=== PATIENT | female | born 1960 | race Caucasian/White ===

== ENCOUNTER 2017-07-09 22:35 | Emergency (ER) | payer MEDICAID ==
[2017-07-09] MEDS ORDERED: KETOROLAC 15 MG/1 ML SDV IM ONE (23:18)
[2017-07-09] MEDS ORDERED: SUMAtriptan 6 MG/0.5 ML VIAL SC ONE (23:18)
[2017-07-09] MEDS ORDERED: IPRATROPIUM/ALBUTEROL 3 ML DEYVIAL IH ONE (23:18)
--- NOTE | 2017-07-09 23:41 | EDPHY ---
H & P Stated Complaint: HEADACHE COUGH AND LOW BACK PAIN, HOMELESS Time Seen by Provider: 07/09/17 23:01 HPI/ROS: HPI The patient presents with multiple complaints, most prominent is headache which she says she has daily and is described as a headache that begins in her frontal region bilaterally and radiates throughout her head. She takes Advil for this, her last dose was yesterday. This usually helps the headache, however she feels it is slightly worse tonight. He came on slowly. She has a history of meningitis remotely and believes this is the cause of her headaches. She is also complaining of lower back pain which she has frequently which is achy in nature. She does not have any paresthesias or weakness per her report. She also reports a mild cough. She usually takes Advair and albuterol for this and has a history of half pack per day smoking. She is newly homeless, previous living in [place] and relocated to [place]. She apparently lost her place at the snf tonight.. REVIEW OF SYSTEMS Constitutional: No fever, no chills. Eyes: No discharge. ENT: No sore throat. Cardiovascular: No chest pain, no palpitations. Respiratory: No cough, no shortness of breath. Gastrointestinal: No abdominal pain, no vomiting. Genitourinary: No hematuria. Musculoskeletal: Positive for back pain. Skin: No rashes. Neurological: Positive for headache. PMHx: Likely COPD, history of meningitis with neurosurgical intervention of some sort Soc Hx: Newly homeless, frequent smoker PHYSICAL General Appearance: Alert, no distress Eyes: Pupils equal and round no pallor or injection ENT, Mouth: Mucous membranes moist Respiratory: There are no retractions, lungs are clear to auscultation Cardiovascular: Regular rate and rhythm Gastrointestinal: Abdomen is soft and non-tender, no masses, bowel sounds normal Neurological: A&O, moves all extremities, strength is full Back: There is lumbar tenderness in the midline in the paraspinal region Skin: Warm and dry, no rashes Musculoskeletal: Neck is supple non tender Extremities: symmetrical, full range of motion Psychiatric: Patient is oriented X 3, there is no agitation Source: Patient Exam Limitations: No limitations - Personal History Current Tetanus/Diphtheria Vaccine: Yes Current Tetanus Diphtheria and Acellular Pertussis (TDAP): Yes - Medical/Surgical History Hx Asthma: No Hx Chronic Respiratory Disease: Yes Hx Diabetes: No Hx Cardiac Disease: No Hx Renal Disease: No Hx Cirrhosis: No Hx Alcoholism: No Hx HIV/AIDS: No Hx Splenectomy or Spleen Trauma: No Other PMH: COPD, BREAST SURGERY, TUBAL HIST, KNEE L, MENINGITIS X3 - Social History Smoking Status: Heavy smoker Constitutional: Initial Vital Signs Temperature (C) 36.6 C 07/09/17 22:37 Heart Rate 107 H 07/09/17 22:37 Respiratory Rate 18 07/09/17 22:37 Blood Pressure 140/80 H 07/09/17 22:37 O2 Sat (%) 84 L 07/09/17 22:37 O2 Delivery Mode Room Air Allergies/Adverse Reactions: penicillin G Allergy (Verified 07/09/17 22:43) Home Medications: Medication Instructions Recorded Albuterol Sulfate [Proair 90 mcg IH 07/09/17 Resp[place]lick] Aspirin [Aspirin 81mg (*)] 81 mg PO DAILY 07/09/17 Fluticasone/Salmeter 250/50Mcg 1 puffs IH BID 07/09/17 [Advair 250/50 (*)] Multivitamin [One Daily Essential] 1 each PO 07/09/17 [place]-3 Fatty Acids/Fish Oil [Fish 1 each PO 07/09/17 Oil 1,000 mg Capsule] Medical Decision Making - Diagnostics Imaging Results: Chest x-ray two view shows no infiltrate, no cardiomegaly, no effusion, interpreted by me, radiology interpretation is pending. Imaging: I viewed and interpreted images myself Differential Diagnosis: 56-year-old female, newly homeless, history of likely COPD and meningitis with chronic headaches presents with headache, lower back pain, cough. On exam, she is notably hypoxic but is breathing comfortably and lungs sound clear to me. She has no neurologic deficits on gross exam. Differential diagnosis includes migraine type headache, tension type headache, less likely meningitis given no nuchal rigidity or photophobia or fever. Back pain is likely musculoskeletal, there are no red flag features. Her cough is likely related to her underlying COPD and lungs sound clear. I will treat her headache symptomatically and try a DuoNeb to see if this improves her oxygen saturation. The patient's headache improved while in the emergency department. She did receive a DuoNeb. She initially did complain of a cough, however does not have any shortness of breath. Because she is somewhat hypoxic, chest x-ray was ordered and this is unremarkable for any acute pathology. I feel it her hypoxia as related to COPD. She has a primary care doctor and I have asked that she follow up for a recheck in the next few days. She has Advair and albuterol prescriptions already. - Data Points Medications Given: Discontinued Medications Albuterol/Ipratropium (Duoneb) 3 ml IH EDNOW ONE Stop: 07/09/17 23:19 Last Admin: 07/09/17 23:37 Dose: 3 ml Ketorolac Tromethamine (Toradol) 15 mg IM EDNOW ONE Stop: 07/09/17 23:19 Last Admin: 07/09/17 23:38 Dose: 15 mg Sumatriptan Succinate (Imitrex Sc Injection) 6 mg SC EDNOW ONE Stop: 07/09/17 23:19 Last Admin: 07/09/17 23:39 Dose: Not Given Departure - Departure Disposition: Home, Routine, Self-Care Clinical Impression: Hypoxia Headache Qualifiers: Headache type: unspecified Headache chronicity pattern: acute headache Intractability: not intractable Qualified Code(s): R51 - Headache Condition: Good Instructions: Migraine Headache (ED) Additional Instructions: Please return to the emergency department if your worse in any way. Referrals: YESSI HAYWARD [Primary Care Provider] - As per Instructions
[2017-07-10 01:47] VITALS: BP 105/72; PULSE 80; RESP 18; TEMP 98.2; O2SAT 90
--- NOTE | 2017-07-10 10:13 | ASMTCMCOM ---
CM Note CM Note Notes: Chart reviewed for patient who was in the ER last night. Patient needs follow up for results of chest x-ray. Dr. Tiff Kingsley of [facility] confirmed as patient's PCP. ED report, chest x-ray , and recommended follow up faxed to [facility] , attention: Dr. Kingsley Date Signed: 07/10/2017 10:12 AM Electronically Signed By:Sol Egan RN
== END 2017-07-10 01:46 | disposition home or self-care (01) ==
DX: R51 Headache (principal); R09.02 Hypoxemia; F17.200 Nicotine dependence, unspecified, uncomplicated; Z79.82 Long term (current) use of aspirin
CPT/HCPCS: J1885; J3030

== ENCOUNTER 2017-08-07 07:18 | Emergency (ER) | payer MEDICAID ==
[2017-08-07 07:23] VITALS: RESP 18
[2017-08-07] MEDS ORDERED: NS 1,000 ML IV ONE (08:07)
[2017-08-07] MEDS ORDERED: methylPREDNISolone SOD SUCC 125 MG/2 ML VIAL IVP ONE (08:07)
[2017-08-07] MEDS ORDERED: IPRATROPIUM/ALBUTEROL 3 ML DEYVIAL IH ONE ×2 (08:07→10:56)
[2017-08-07] MEDS ORDERED: ACETAMINOPHEN 500 MG TAB PO ONE (08:08)
--- NOTE | 2017-08-07 08:10 | EDPHY ---
H & P Stated Complaint: Cough, headache, body aches for 1 week. Time Seen by Provider: 08/07/17 08:00 HPI/ROS: CHIEF COMPLAINT: Cough, COPD, headache HISTORY OF PRESENT ILLNESS: The patient is a 57-year-old homeless female with a history of COPD who comes to the emergency department complaining of a cough, and mild headache. She states that these are both baseline. She does smoke. She was seen here 1 month ago for the same symptoms and they improved with a DuoNeb and had a chest x-ray which revealed no pneumonia but a 8 mm right middle lobe nodule. CT imaging follow-up was recommended. The patient tells me that she was unaware of this. She has been afebrile. She denies any trauma. She was hypoxic on room air on triage but is not in the room. REVIEW OF SYSTEMS: Constitutional: denies: chills, fever, recent illness, recent injury EENTM: denies: blurred vision, double vision, nose congestion Respiratory: See HPI Cardiac: denies: chest pain, irregular heart rate, lightheadedness, palpitations Gastrointestinal/Abdominal: denies: abdominal pain, diarrhea, nausea, vomiting, blood streaked stools Genitourinary: denies: dysuria, frequency, hematuria, pain Musculoskeletal: denies: joint pain, muscle pain Skin: denies: lesions, rash, jaundice, bruising Neurological: See HPI denies: numbness, paresthesia, tingling, dizziness, weakness Hematologic/Lymphatic: denies: blood clots, easy bleeding, easy bruising Immunologic/allergic: denies: HIV/AIDS, transplant EXAM: GENERAL: Well-appearing, well-nourished and in no acute distress. HEAD: Atraumatic, normocephalic. EYES: Pupils equal round and reactive to light, extraocular movements intact, sclera anicteric, conjunctiva are normal. ENT: TMs normal, nares patent, oropharynx clear without exudates. Moist mucous membranes. NECK: Normal range of motion, supple without lymphadenopathy or JVD. LUNGS: Breath sounds clear to auscultation bilaterally and equal. No wheezes rales or rhonchi. HEART: Regular rate and rhythm without murmurs, rubs or gallops. ABDOMEN: Soft, nontender, normoactive bowel sounds. No guarding, no rebound. No masses appreciated. BACK: No CVA tenderness, no spinal tenderness, step-offs or deformities EXTREMITIES: Normal range of motion, no pitting or edema. No clubbing or cyanosis. NEUROLOGICAL: Cranial nerves II through XII grossly intact. Normal speech, normal gait. 5/5 strength, normal movement in all extremities, normal sensation PSYCH: Normal mood, normal affect. SKIN: Warm, dry, normal turgor, no visible rashes or lesions. Source: Patient Exam Limitations: No limitations - Personal History Current Tetanus Diphtheria and Acellular Pertussis (TDAP): Unsure - Medical/Surgical History Hx Asthma: No Hx Chronic Respiratory Disease: Yes Hx Diabetes: No Hx Cardiac Disease: No Hx Renal Disease: No Hx Cirrhosis: No Hx Alcoholism: No Hx HIV/AIDS: No Hx Splenectomy or Spleen Trauma: No Other PMH: COPD, BREAST SURGERY, TUBAL HIST, KNEE L, MENINGITIS X3 - Family History Significant Family History: No pertinent family hx - Social History Smoking Status: Heavy smoker Alcohol Use: Heavy Drug Use: Marijuana Constitutional: Initial Vital Signs Temperature (C) 36.6 C 08/07/17 07:18 Heart Rate 99 08/07/17 07:18 Respiratory Rate 18 08/07/17 07:18 Blood Pressure 118/76 08/07/17 07:18 O2 Sat (%) 84 L 08/07/17 07:18 O2 Delivery Mode Room Air Allergies/Adverse Reactions: penicillin G Allergy (Verified 07/09/17 22:43) Home Medications: Medication Instructions Recorded Albuterol Sulfate [Proair 90 mcg IH 07/09/17 Respiclick] Aspirin [Aspirin 81mg (*)] 81 mg PO DAILY 07/09/17 Fluticasone/Salmeter 250/50Mcg 1 puffs IH BID 07/09/17 [Advair 250/50 (*)] Multivitamin [One Daily Essential] 1 each PO 07/09/17 [place]-3 Fatty Acids/Fish Oil [Fish 1 each PO 07/09/17 Oil 1,000 mg Capsule] Albuterol [Proventil Inhaler] 1 - 2 puffs IH Q4H #1 mdi 08/07/17 predniSONE 60 mg PO DAILY #15 tab 08/07/17 Medical Decision Making - Diagnostics Imaging Results: Imaging Impressions Chest/Thorax CTA 08/07/17 08:07 Impression: 1. No evidence of pulmonary embolus using CT protocol. 2. No underlying consolidation or pneumonia. 3. Probably benign bilateral small pulmonary nodules as detailed above. Consider follow-up noncontrast CT the chest in one year to confirm stability and benign features. Findings discussed with Andrew Woods M.D. at 10:40 hour, 08/07/2017. Imaging: Discussed imaging studies w/ house calls nurse Radiologist ED Course/Re-evaluation: 10:00 a.m. the patient is feeling much better. Headache is resolved after Tylenol. Hypoxia resolved with a DuoNeb. 10:[address] a.[address]. we discussed the CT results. We discussed 1 year follow-up. Patient is currently asymptomatic and eager to go home. She is slightly hypoxic at 88% on room air. I will give her another DuoNeb. She states that she does not feel short of breath at all. This may be her baseline. She does state that she ran out of her albuterol inhaler but takes Advair daily. I will give her short course of prednisone and refill of her albuterol. Differential Diagnosis: Partial list of the Differential diagnosis considered include but were not limited to; COPD exacerbation, migraine, tension headache and although unlikely based on the history and physical exam, I also considered pneumonia, PE , cancer, acute coronary disease, dissection. I discussed these differential diagnoses and the plan with the patient as well as the usual and expected course. The patient understands that the diagnosis is provisional and that in medicine we are not always correct and that further workup is often warranted. Usual and customary warnings were given. All of the patient's questions were answered. The patient was instructed to return to the emergency department should the symptoms at all worsen or return, otherwise to followup with the physician as we discussed. - Data Points Laboratory Results: Laboratory Results 08/07/17 08:20 08/07/17 08:20 08/07/17 08/07/17 08/07/17 08:20 08:20 08:20 WBC 7.80 10^3/uL 10^3/uL (3.80-9.50) RBC 4.59 10^6/uL 10^6/uL (4.18-5.33) Hgb 14.4 g/dL g/dL (12.6-16.3) Hct 41.6 % % (38.0-47.0) MCV 90.6 fL fL (81.5-99.8) MCH 31.4 pg pg (27.9-34.1) MCHC 34.6 g/dL g/dL (32.4-36.7) RDW 13.8 % % (11.5-15.2) Plt Count 233 10^3/uL 10^3/uL (150-400) MPV 9.9 fL fL (8.7-11.7) Neut % (Auto) 75.8 % H % (39.3-74.2) Lymph % (Auto) 11.7 % L % (15.0-45.0) [place] % (Auto) 11.4 % % (4.5-13.0) Eos % (Auto) 0.3 % L % (0.6-7.6) Baso % (Auto) 0.5 % % (0.3-1.7) Nucleat RBC Rel Count 0.0 % % (0.0-0.2) Absolute Neuts (auto) 5.92 10^3/uL 10^3/uL (1.70-6.50) Absolute Lymphs (auto) 0.91 10^3/uL L 10^3/uL (1.00-3.00) Absolute Monos (auto) 0.89 10^3/uL H 10^3/uL (0.30-0.80) Absolute Eos (auto) 0.02 10^3/uL L 10^3/uL (0.03-0.40) Absolute Basos (auto) 0.04 10^3/uL 10^3/uL (0.02-0.10) Absolute Nucleated RBC 0.00 10^3/uL 10^3/uL (0-0.01) Immature Gran % 0.3 % % (0.0-1.1) Immature Gran # 0.02 10^3/uL 10^3/uL (0.00-0.10) APTT 36.2 SEC SEC (23.0-38.0) Sodium 143 mEq/L mEq/L (134-144) Potassium 4.1 mEq/L mEq/L (3.5-5.2) Chloride 105 mEq/L mEq/L (97-110) Carbon Dioxide 28 mEq/l mEq/l (22-31) Anion Gap 10 mEq/L mEq/L (8-16) BUN 6 mg/dL L mg/dL (7-23) Creatinine 0.6 mg/dL mg/dL (0.6-1.0) Estimated GFR > 60 Glucose 88 mg/dL mg/dL (70-100) Calcium 8.7 mg/dL mg/dL (8.5-10.4) Medications Given: Discontinued Medications Acetaminophen (Tylenol) 1,000 mg PO EDNOW ONE Stop: 08/07/17 08:09 Last Admin: 08/07/17 08:21 Dose: 1,000 mg Albuterol Sulfate (Proventil Inh [place]) 1 mdi TAKEHOME EDNOW ONE Stop: 08/07/17 10:58 Last Admin: 08/07/17 11:09 Dose: 1 mdi Albuterol/Ipratropium (Duoneb) 3 ml IH EDNOW ONE Stop: 08/07/17 08:08 Last Admin: 08/07/17 08:21 Dose: 3 ml Albuterol/Ipratropium (Duoneb) 3 ml IH EDNOW ONE Stop: 08/07/17 10:57 Last Admin: 08/07/17 11:09 Dose: 3 ml Sodium Chloride (Ns) 1,000 mls @ 0 mls/hr IV ONCE ONE; Wide Open PRN Reason: Protocol Stop: 08/07/17 08:08 Last Admin: 08/07/17 08:20 Dose: 1,000 mls Methylprednisolone Sodium Succinate (Solu-Medrol) 125 mg IVP EDNOW ONE Stop: 08/07/17 08:08 Last Admin: 08/07/17 08:21 Dose: 125 mg Departure - Departure Disposition: Home, Routine, Self-Care Clinical Impression: COPD exacerbation Headache Qualifiers: Headache type: unspecified Headache chronicity pattern: acute headache Intractability: not intractable Qualified Code(s): R51 - Headache Condition: Fair Instructions: Albuterol (By breathing), COPD (Chronic Obstructive Pulmonary Disease) (DC), Acute Headache (ED) Additional Instructions: He have small nodules on each side of your lungs. We recommend to get a follow- up noncontrast CT scan of your chest in 1 year. Referrals: [facility] [Other] - As per Instructions Prescriptions: Albuterol [Proventil Inhaler] 1 - 2 puffs IH Q4H #1 mdi predniSONE 60 mg PO DAILY #15 tab
[2017-08-07] MEDS ORDERED: IOPAMIDOL (ISOVUE 370) 100 ML BTL IV ONE (08:19)
[2017-08-07 08:34] LABS: % IMMATURE GRANULYOCYTES 0.3 % (0.0-1.1); ABSOLUTE IMMATURE GRANULOCYTES 0.02 10^3/uL (0.00-0.10); ADD DIFF? NO; ADD MORPH? NO; ADD SCAN? NO; ATYPICAL LYMPHOCYTE FLAG 20 (0-99); FRAGMENT RBC FLAG 0 (0-99); HEMATOCRIT 41.6 % (38.0-47.0); HEMOGLOBIN 14.4 g/dL (12.6-16.3); LEFT SHIFT FLG 0 (0-99); LIPEMIA HEMOLYSIS FLAG 90 (0-99); MEAN CELL HEMOGLOBIN 31.4 pg (27.9-34.1); MEAN CELL HEMOGLOBIN CONCENTR. 34.6 g/dL (32.4-36.7); MEAN CELL VOLUME 90.6 fL (81.5-99.8); MEAN PLATELET VOLUME 9.9 fL (8.7-11.7); PLATELET CLUMPS FLAG 0 (0-99); PLATELET COUNT 233 10^3/uL (150-400); RED BLOOD CELL COUNT 4.59 10^6/uL (4.18-5.33); RED CELL DISTRIBUTION WIDTH 13.8 % (11.5-15.2)
[2017-08-07 08:47] LABS: ANION GAP 10 mEq/L (8-16); CALCIUM 8.7 mg/dL (8.5-10.4); CARBON DIOXIDE 28 mEq/l (22-31); CHLORIDE 105 mEq/L (97-110); CREATININE 0.6 mg/dL (0.6-1.0); GLOMERULAR FILTRATION RATE > 60; GLUCOSE 88 mg/dL (70-100); POTASSIUM 4.1 mEq/L (3.5-5.2); SODIUM 143 mEq/L (134-144)
[2017-08-07 10:06] VITALS: TEMP 98.6; O2SAT 93
[2017-08-07] MEDS ORDERED: ALBUTEROL INH PREPACK MDI TAKEHOME ONE (10:57)
[2017-08-07 11:33] VITALS: BP 107/81; PULSE 90
== END 2017-08-07 11:32 | disposition home or self-care (01) ==
DX: J44.1 Chronic obstructive pulmonary disease with (acute) exacerbation (principal); R51 Headache; F17.200 Nicotine dependence, unspecified, uncomplicated; E86.9 Volume depletion, unspecified; Z79.82 Long term (current) use of aspirin
CPT/HCPCS: 96374; J2930; Q9967

== ENCOUNTER 2017-08-08 06:43 | Inpatient (IN) | payer MEDICAID ==
--- NOTE | 2017-08-08 07:01 | EDPHY ---
HPI/HX/ROS/PE/MDM Narrative: CHIEF COMPLAINT: Shortness of breath, cough HPI: This patient is a 57 y/o homeless female with history of COPD complaining of cough and substernal chest pain onset last night. She was evaluated in this emergency department yesterday for cough and headache. CT imaging at that time showed no pneumonia, but was positive for a right middle lobe nodule, also present on x-ray one month ago. She was discharged in good condition with prednisone and albuterol. Today, she complains of continued dry cough as well as sore throat and otalgia. She has been afebrile. She did receive her flu vaccine this year. REVIEW OF SYSTEMS: Aside from elements discussed in the HPI, a comprehensive 10-point review of systems was reviewed and is negative. PMH: COPD, Breast surgery, Tubal ligation, Meningitis, Orthopedic surgery (knee) SOCIAL HISTORY: Homeless, lives in [place], single. PHYSICAL EXAM: General:Patient is alert, in no acute distress. ENT:Eyes are normal to inspection. ENT inspection normal. Neck: Normal inspection. Full range of motion. Respiratory:No respiratory distress. Breath sounds normal bilaterally. Cardiovascular: Regular rate and rhythm. Strong peripheral pulses. Normal cap refill. Abdomen:The abdomen is nontender to palpation. There are no peritoneal signs. There are normal bowel sounds. Back: Normal to inspection. No tenderness to palpation. Skin: Normal color. No rash. Warm and dry. Extremities: Normal appearance. Full range of motion. Neuro: Oriented x3. Normal motor function. Normal sensory function. ED Course: 57 y/o female presents with cough and substernal chest pain. Plan for repeat chest x-ray, labs including CBC, chemistries, liver, lipase, troponin, flu swab. Flu swab negative. Laboratory studies largely unremarkable, Troponin negative. 08:50 Plan for EKG to further evaluation the patient's chest pain. EKG was ordered and interpreted by myself. Please see [facility] system for official reading. Sinus rhythm, rate 86. Borderline right axis deviation. X-ray shows evidence of pulmonary nodules as noted on prior scans. No evidence of pneumonia or other acute processes. CT study yesterday read by Dr. Davis, radiologist, was negative for pulmonary embolism. 09:45 Patient's SpO2 dropped to 79% on room air. Plan to administer DuoNeb. 10:10 Patient's SpO2 improved to 82% on room air following DuoNeb treatment. Plan to admit. 10:[address] Spoke with hospitalist service. Dr. Becerra accepts admission for shortness of breath, hypoxemia. MDM: This patient presents with likely COPD exacerbation complicated by hypoxia. I see no evidence of ACS, PNA, severe sepsis, CHF or PE. - Data Points Imaging Results: Imaging Impressions Chest X-Ray 08/08/17 06:59 Impression: 1. Query COPD/chronic bronchitis. 2. Pulmonary nodules, recently detailed on CT with follow-up recommended Imaging: I viewed and interpreted images myself Laboratory Results: Laboratory Results 08/08/17 06:45 08/08/17 06:45 08/08/17 08/08/17 08/08/17 08:01 07:55 06:45 WBC RBC Hgb Hct MCV MCH MCHC RDW Plt Count MPV Neut % (Auto) Lymph % (Auto) [place] % (Auto) Eos % (Auto) Baso % (Auto) Nucleat RBC Rel Count Absolute Neuts (auto) Absolute Lymphs (auto) Absolute Monos (auto) Absolute Eos (auto) Absolute Basos (auto) Absolute Nucleated RBC Immature Gran % Immature Gran # Sodium 147 mEq/L H mEq/L (134-144) Potassium 3.9 mEq/L mEq/L (3.5-5.2) Chloride 105 mEq/L mEq/L (97-110) Carbon Dioxide 27 mEq/l mEq/l (22-31) Anion Gap 15 mEq/L mEq/L (8-16) BUN 8 mg/dL mg/dL (7-23) Creatinine 0.6 mg/dL mg/dL (0.6-1.0) Estimated GFR > 60 Glucose 90 mg/dL mg/dL (70-100) Calcium 9.6 mg/dL mg/dL (8.5-10.4) Total Bilirubin 0.4 mg/dL mg/dL (0.1-1.4) Conjugated Bilirubin 0.2 mg/dL mg/dL (0.0-0.5) Unconjugated Bilirubin 0.2 mg/dL mg/dL (0.0-1.1) AST 33 IU/L IU/L (14-46) ALT 39 IU/L IU/L (9-52) Alkaline Phosphatase 148 IU/L H IU/L (38-126) Troponin I < 0.012 ng/mL ng/mL (0.000-0.034) Total Protein 6.7 g/dL g/dL (6.3-8.2) Albumin 4.0 g/dL g/dL (3.5-5.0) Lipase 69 IU/L IU/L (23-300) Nasal Influenza A PCR NEGATIVE FOR FLU A (NEGATIVE) Nasal Influenza B PCR NEGATIVE FOR FLU B (NEGATIVE) 08/08/17 06:45 WBC 11.56 10^3/uL H 10^3/uL (3.80-9.50) RBC 4.91 10^6/uL 10^6/uL (4.18-5.33) Hgb 15.4 g/dL g/dL (12.6-16.3) Hct 44.4 % % (38.0-47.0) MCV 90.4 fL fL (81.5-99.8) MCH 31.4 pg pg (27.9-34.1) MCHC 34.7 g/dL g/dL (32.4-36.7) RDW 14.0 % % (11.5-15.2) Plt Count 258 10^3/uL 10^3/uL (150-400) MPV 10.0 fL fL (8.7-11.7) Neut % (Auto) 74.6 % H % (39.3-74.2) Lymph % (Auto) 14.0 % L % (15.0-45.0) [place] % (Auto) 10.8 % % (4.5-13.0) Eos % (Auto) 0.0 % L % (0.6-7.6) Baso % (Auto) 0.3 % % (0.3-1.7) Nucleat RBC Rel Count 0.0 % % (0.0-0.2) Absolute Neuts (auto) 8.63 10^3/uL H 10^3/uL (1.70-6.50) Absolute Lymphs (auto) 1.62 10^3/uL 10^3/uL (1.00-3.00) Absolute Monos (auto) 1.25 10^3/uL H 10^3/uL (0.30-0.80) Absolute Eos (auto) 0.00 10^3/uL L 10^3/uL (0.03-0.40) Absolute Basos (auto) 0.03 10^3/uL 10^3/uL (0.02-0.10) Absolute Nucleated RBC 0.00 10^3/uL 10^3/uL (0-0.01) Immature Gran % 0.3 % % (0.0-1.1) Immature Gran # 0.03 10^3/uL 10^3/uL (0.00-0.10) Sodium Potassium Chloride Carbon Dioxide Anion Gap BUN Creatinine Estimated GFR Glucose Calcium Total Bilirubin Conjugated Bilirubin Unconjugated Bilirubin AST ALT Alkaline Phosphatase Troponin I Total Protein Albumin Lipase Nasal Influenza A PCR Nasal Influenza B PCR Medications Given: Discontinued Medications Albuterol/Ipratropium (Duoneb) 3 ml IH EDNOW ONE Stop: 08/08/17 09:48 Last Admin: 08/08/17 09:52 Dose: 3 ml General Initial Vital Signs: Initial Vital Signs Temperature (C) 36.4 C 08/08/17 06:51 Heart Rate 109 H 08/08/17 06:51 Respiratory Rate 20 08/08/17 06:51 Blood Pressure 141/78 H 08/08/17 06:51 O2 Sat (%) 91 L 08/08/17 06:51 O2 Delivery Mode Nasal Cannula O2 (L/minute) 2 Allergies/Adverse Reactions: penicillin G Allergy (Verified 08/08/17 06:53) Home Medications: Medication Instructions Recorded Aspirin [Aspirin 81mg (*)] 81 mg PO DAILY 07/09/17 Fluticasone/Salmeter 250/50Mcg 1 puffs IH BID 07/09/17 [Advair 250/50 (*)] Albuterol [Proventil Inhaler HFA 1 - 2 puffs IH Q4-6PRN PRN 08/08/17 (*)] Calcium Carbonate [[place] 500 mg PO DAILY 08/08/17 Calcium 500 mg (*)] Multivitamins [Multivitamin (*)] 1 each PO DAILY 08/08/17 [place]-3 Fatty Acids [Fish Oil 1000 1,000 mg PO DAILY 08/08/17 mg (*)] Departure - Departure Disposition: [facility] In[facility] Acute Clinical Impression: Hypoxemia Chest pain Qualifiers: Chest pain type: other chest pain Qualified Code(s): R07.89 - Other chest pain Condition: Fair Report Scribed for: Rudy Montgomery Report Scribed by: Inna Nichols Date of Report: 08/08/17 Time of Report: 07:00 Physician Review and Approval Statement: Portions of this note were transcribed by an ED scribe. I personally performed the history, physical exam, and medical decision making; and confirm the accuracy of the information in the transcribed note.
[2017-08-08 07:07] LABS: % IMMATURE GRANULYOCYTES 0.3 % (0.0-1.1); ABSOLUTE IMMATURE GRANULOCYTES 0.03 10^3/uL (0.00-0.10); ADD DIFF? NO; ADD MORPH? NO; ADD SCAN? NO; ATYPICAL LYMPHOCYTE FLAG 20 (0-99); FRAGMENT RBC FLAG 0 (0-99); HEMATOCRIT 44.4 % (38.0-47.0); HEMOGLOBIN 15.4 g/dL (12.6-16.3); LEFT SHIFT FLG 0 (0-99); LIPEMIA HEMOLYSIS FLAG 90 (0-99); MEAN CELL HEMOGLOBIN 31.4 pg (27.9-34.1); MEAN CELL HEMOGLOBIN CONCENTR. 34.7 g/dL (32.4-36.7); MEAN CELL VOLUME 90.4 fL (81.5-99.8); PLATELET CLUMPS FLAG 0 (0-99); PLATELET COUNT 258 10^3/uL (150-400); RED BLOOD CELL COUNT 4.91 10^6/uL (4.18-5.33)
[2017-08-08 07:14] LABS: ANION GAP 15 mEq/L (8-16); CALCIUM 9.6 mg/dL (8.5-10.4); CARBON DIOXIDE 27 mEq/l (22-31); CHLORIDE 105 mEq/L (97-110); CREATININE 0.6 mg/dL (0.6-1.0); GLOMERULAR FILTRATION RATE > 60; GLUCOSE 90 mg/dL (70-100); POTASSIUM 3.9 mEq/L (3.5-5.2); SODIUM 147 mEq/L (134-144)
[2017-08-08 07:26] LABS: TROPONIN I < 0.012 ng/mL (0.000-0.034)
[2017-08-08 08:07] LABS: BILIRUBIN,TOTAL 0.4 mg/dL (0.1-1.4); BILIRUBIN-CONJUGATED 0.2 mg/dL (0.0-0.5); BILIRUBIN-UNCONJUGATED 0.2 mg/dL (0.0-1.1); TOTAL PROTEIN 6.7 g/dL (6.3-8.2)
--- NOTE | 2017-08-08 09:02 | CPEKG ---
Heart Rate: 86 RR Interval: 698 P-R Interval: 160 QRSD Interval: 80 QT Interval: 368 QTC Interval: 440 P [place]: 79 QRS [place]: 93 T Wave [place]: 64 EKG Severity - OTHERWISE NORMAL ECG - EKG Impression: SINUS RHYTHM EKG Impression: BORDERLINE RIGHT AXIS DEVIATION Electronically Signed By: Dorothy Robles 10-Aug-2017 14:07:01
[2017-08-08] MEDS ORDERED: IPRATROPIUM/ALBUTEROL 3 ML DEYVIAL IH ONE (09:47)
[2017-08-08] MEDS ORDERED: IPRATROPIUM/ALBUTEROL 3 ML DEYVIAL ONE (09:48)
[2017-08-08] MEDS ORDERED: ONDANSETRON DISINTEGRATING 4 MG TAB PO PRN (10:53)
[2017-08-08] MEDS ORDERED: ALBUTEROL 60 PUFFS/8 GM MDI IH PRN (10:53)
[2017-08-08] MEDS ORDERED: ACETAMINOPHEN 325 MG TAB PO PRN (10:53)
[2017-08-08] MEDS ORDERED: IBUPROFEN 200 MG TAB PO PRN ×2 (10:53→16:17)
[2017-08-08] MEDS ORDERED: ONDANSETRON 4 MG/2 ML VIAL IVP PRN (10:53)
[2017-08-08] MEDS ORDERED: ALBUTEROL 200 PUFFS/18 GM MDI IH PRN (12:29)
[2017-08-08] MEDS: IPRATROPIUM/ALBUTEROL 3 ML DEYVIAL IH SCH ×3 (15:47→20:27)
--- NOTE | 2017-08-08 16:22 | PDGENHP ---
History and Physical - Chief Complaint Acute chest pain - History of Present Illness Primary care provider: [facility] HPI: 57-year-old female presents with acute chest pain characterized as a burning sensation located substernally with associated nonproductive cough, shortness of breath, headache, with symptom onset on the day of this presentation and duration persistent thereafter. She reports that the chest pain occurred in the context of 2 days of this nonproductive cough, and the chest pain seems to be somewhat exacerbated by the cough as well as palpating her sternum. She reports that her shortness of breath has been somewhat alleviated by supplemental oxygen in the emergency department. The patient has been experiencing the constellation of headache, sore throat for approximately 1 week and she attempts to manage the symptoms with ibuprofen. History Information - Allergies/Home Medication List Allergies/Adverse Reactions: penicillin G Allergy (Verified 08/08/17 06:53) Home Medications: Aspirin [Aspirin 81mg (*)] 81 mg PO DAILY 07/09/17 [Last Taken 08/07/17] Fluticasone/Salmeter 250/50Mcg [Advair 250/50 (*)] 1 puffs IH BID 07/09/17 [ Last Taken 08/08/17] Albuterol [Proventil Inhaler HFA (*)] 1 - 2 puffs IH Q4-6PRN PRN 08/08/17 [Last Taken 08/08/17] Calcium Carbonate [Oyster Shell Calcium 500 mg (*)] 500 mg PO DAILY 08/08/17 [ Last Taken 08/07/17] Multivitamins [Multivitamin (*)] 1 each PO DAILY 08/08/17 [Last Taken 08/07/17] [place]-3 Fatty Acids [Fish Oil 1000 mg (*)] 1,000 mg PO DAILY 08/08/17 [Last Taken 08/07/17] I have personally reviewed and updated: family history, medical history, social history, surgical history - Past Medical History COPD (With Advair and rescue inhaler) Additional medical history: Traumatic brain injury - Surgical History Additional surgical history: Breast tissue excision. EMILEE BSO. Knee surgery. Facial nasal reconstruction, craniotomy status post trauma - Family History Additional family history: Sibling with myocardial infarction around age 50, father with CAD and CHF in his 80s, no respiratory issues - Social History Smoking Status: Heavy smoker Alcohol Use: None Drug Use: None Additional social history: Homeless, recently moved from [place] to [place] Review of Systems Review of Systems: ROS: 10pt was reviewed & negative except for what was stated in HPI & below EENMT: Reports: sore throat Cardiac: Reports: chest pain Respiratory: Reports: cough, shortness of breath Neurological: Reports: headache Physical Exam Physical Exam: Temp Pulse Resp BP Pulse Ox 36.8 C 103 H 18 120/74 93 08/08/17 16:10 08/08/17 16:10 08/08/17 16:10 08/08/17 16:10 08/08/17 16:10 O2 (L/minute) 4 Constitutional: no apparent distress, appears nourished, not in pain Eyes: PERRL, anicteric sclera, EOMI Ears, Nose, Mouth, Throat: moist mucous membranes, hearing normal, ears appear normal, no oral mucosal ulcers Cardiovascular: regular rate and rhythym, no murmur, rub, or gallop, No edema Respiratory: reduced air movement (On expiration bilaterally), No expiratory wheeze, No inspiratory crackles, No bronchial breath sounds, No respiratory distress Gastrointestinal: normoactive bowel sounds, soft, non-tender abdomen, no palpable masses, No distension Skin: other (Well healed scar along the anterior aspect of her scalp), No rash ( On anterior chest) Neurologic: AAOx3, sensation intact bilaterally, No weakness, No facial droop Psychiatric: interacting appropriately, not anxious, not encephalopathic, thought process linear Lab Data & Imaging Review 08/08/17 06:45 08/08/17 06:45 WBC 11.56 10^3/uL (3.80-9.50) H 08/08/17 06:45 RBC 4.91 10^6/uL (4.18-5.33) 08/08/17 06:45 Hgb 15.4 g/dL (12.6-16.3) 08/08/17 06:45 Hct 44.4 % (38.0-47.0) 08/08/17 06:45 MCV 90.4 fL (81.5-99.8) 08/08/17 06:45 MCH 31.4 pg (27.9-34.1) 08/08/17 06:45 MCHC 34.7 g/dL (32.4-36.7) 08/08/17 06:45 RDW 14.0 % (11.5-15.2) 08/08/17 06:45 Plt Count 258 10^3/uL (150-400) 08/08/17 06:45 MPV 10.0 fL (8.7-11.7) 08/08/17 06:45 Neut % (Auto) 74.6 % (39.3-74.2) H 08/08/17 06:45 Lymph % (Auto) 14.0 % (15.0-45.0) L 08/08/17 06:45 [place] % (Auto) 10.8 % (4.5-13.0) 08/08/17 06:45 Eos % (Auto) 0.0 % (0.6-7.6) L 08/08/17 06:45 Baso % (Auto) 0.3 % (0.3-1.7) 08/08/17 06:45 Nucleat RBC Rel Count 0.0 % (0.0-0.2) 08/08/17 06:45 Absolute Neuts (auto) 8.63 10^3/uL (1.70-6.50) H 08/08/17 06:45 Absolute Lymphs (auto) 1.62 10^3/uL (1.00-3.00) 08/08/17 06:45 Absolute Monos (auto) 1.25 10^3/uL (0.30-0.80) H 08/08/17 06:45 Absolute Eos (auto) 0.00 10^3/uL (0.03-0.40) L 08/08/17 06:45 Absolute Basos (auto) 0.03 10^3/uL (0.02-0.10) 08/08/17 06:45 Absolute Nucleated RBC 0.00 10^3/uL (0-0.01) 08/08/17 06:45 Immature Gran % 0.3 % (0.0-1.1) 08/08/17 06:45 Immature Gran # 0.03 10^3/uL (0.00-0.10) 08/08/17 06:45 Sodium 147 mEq/L (134-144) H 08/08/17 06:45 Potassium 3.9 mEq/L (3.5-5.2) 08/08/17 06:45 Chloride 105 mEq/L (97-110) 08/08/17 06:45 Carbon Dioxide 27 mEq/l (22-31) 08/08/17 06:45 Anion Gap 15 mEq/L (8-16) 08/08/17 06:45 BUN 8 mg/dL (7-23) 08/08/17 06:45 Creatinine 0.6 mg/dL (0.6-1.0) 08/08/17 06:45 Estimated GFR > 60 08/08/17 06:45 Glucose 90 mg/dL (70-100) 08/08/17 06:45 Calcium 9.6 mg/dL (8.5-10.4) 08/08/17 06:45 Total Bilirubin 0.4 mg/dL (0.1-1.4) 08/08/17 07:55 Conjugated Bilirubin 0.2 mg/dL (0.0-0.5) 08/08/17 07:55 Unconjugated Bilirubin 0.2 mg/dL (0.0-1.1) 08/08/17 07:55 AST 33 IU/L (14-46) 08/08/17 07:55 ALT 39 IU/L (9-52) 08/08/17 07:55 Alkaline Phosphatase 148 IU/L (38-126) H 08/08/17 07:55 Troponin I < 0.012 ng/mL (0.000-0.034) 08/08/17 06:45 Total Protein 6.7 g/dL (6.3-8.2) 08/08/17 07:55 Albumin 4.0 g/dL (3.5-5.0) 08/08/17 07:55 Lipase 69 IU/L (23-300) 08/08/17 07:55 Nasal Influenza A PCR NEGATIVE FOR FLU A (NEGATIVE) 08/08/17 08:01 Nasal Influenza B PCR NEGATIVE FOR FLU B (NEGATIVE) 08/08/17 08:01 Visualized and Interpreted Chest x-ray results: Yes Chest X-Ray results: no infiltrate Visualized and Interpreted EKG results: Yes EKG additional interpertation: Normal sinus mechanism Assessment & Plan Assessment: 57-year-old female presents with acute chest pain in the setting of acute COPD exacerbation Plan: 1. Chest pain. Acute, new problem this provider, further workup indicated. Most likely secondary to costochondritis secondary to persistent cough, patient does have familial cardiovascular risk factors, will cycle cardiac enzymes -treat supportively with Tylenol and ibuprofen, cough suppressant 2. Acute COPD exacerbation. Evidenced by diffuse expiratory obstructed air movement comma in the setting of known COPD and ongoing tobacco use, unclear precipitant, possibly viral URI -get respiratory viral panel -get rapid strep given tender lymphadenopathy, sore throat -reviewed outside records including 08/07/2017 CT angiogram demonstrating no pulmonary embolism, no focal airspace disease -treat with prednisone, scheduled duo nebs, as needed albuterol inhaler, antibiotic to short duration of symptoms -given her degree of hypoxia, 79% on room air, she will require treatment observation overnight 3. Tobacco use disorder. Offered patient nicotine replacement therapy, she declined, recommend cessation 4. Headache. Chronic, reviewed outside records including 07/09/[address] Dr[address] Kathya Queen, she reports the patient had headache at that time, was similar to her chronic once, received supportive care with Tylenol, resolved Diet. Regular Prophylaxis. Low risk patient, SCDs Code. Full Disposition. Anticipated discharge 08/09/2017, pending further workup and stabilization of condition outlined above. I have discussed patient's presentation with Adele Gavin, hospitalist provider, she has signed out the patient to me for evaluation.
[2017-08-08] MEDS: AZITHROMYCIN 250 MG TAB PO SCH (17:10)
[2017-08-08] MEDS: GUAIFENESIN/DM 10 ML UDCUP PO PRN ×2 (17:10→21:45)
[2017-08-08] MEDS: predniSONE 20 MG TAB PO SCH (17:10)
[2017-08-08] MEDS: FLUTICASONE/SALMETER 250/50MCG DISKUS IH SCH (20:27)
[2017-08-08] MEDS: guaiFENesin 600 MG TAB.ER PO SCH (21:42)
[2017-08-09] MEDS: IPRATROPIUM/ALBUTEROL 3 ML DEYVIAL IH SCH ×4 (04:47→22:28)
[2017-08-09 05:32] LABS: % IMMATURE GRANULYOCYTES 0.3 % (0.0-1.1); ABSOLUTE IMMATURE GRANULOCYTES 0.05 10^3/uL (0.00-0.10); ADD DIFF? NO; ADD MORPH? NO; ADD SCAN? NO; ATYPICAL LYMPHOCYTE FLAG 20 (0-99); FRAGMENT RBC FLAG 0 (0-99); HEMATOCRIT 41.6 % (38.0-47.0); HEMOGLOBIN 14.1 g/dL (12.6-16.3); LEFT SHIFT FLG 0 (0-99); LIPEMIA HEMOLYSIS FLAG 90 (0-99); MEAN CELL HEMOGLOBIN 30.7 pg (27.9-34.1); MEAN CELL HEMOGLOBIN CONCENTR. 33.9 g/dL (32.4-36.7); MEAN CELL VOLUME 90.6 fL (81.5-99.8); MEAN PLATELET VOLUME 10.3 fL (8.7-11.7); PLATELET CLUMPS FLAG 0 (0-99); PLATELET COUNT 237 10^3/uL (150-400); RED BLOOD CELL COUNT 4.59 10^6/uL (4.18-5.33); RED CELL DISTRIBUTION WIDTH 13.9 % (11.5-15.2)
[2017-08-09 05:56] LABS: ANION GAP 10 mEq/L (8-16); CALCIUM 9.2 mg/dL (8.5-10.4); CARBON DIOXIDE 29 mEq/l (22-31); CHLORIDE 105 mEq/L (97-110); CREATININE 0.5 mg/dL (0.6-1.0); GLOMERULAR FILTRATION RATE > 60; GLUCOSE 109 mg/dL (70-100); POTASSIUM 4.3 mEq/L (3.5-5.2); SODIUM 144 mEq/L (134-144)
[2017-08-09] MEDS: FLUTICASONE/SALMETER 250/50MCG DISKUS IH SCH ×2 (10:04→22:28)
[2017-08-09] MEDS: ASPIRIN 81 MG CHEWABLE TAB PO SCH (10:35)
[2017-08-09] MEDS: AZITHROMYCIN 250 MG TAB PO SCH (10:38)
[2017-08-09] MEDS: predniSONE 20 MG TAB PO SCH (10:39)
[2017-08-09] MEDS: MULTIVITAMINS 1 EACH TAB PO SCH (10:39)
[2017-08-09] MEDS: OMEGA-3 FATTY ACIDS 1,000 MG CAP PO SCH (10:39)
[2017-08-09] MEDS: CALCIUM CARBONATE 500 MG TAB PO SCH (10:39)
[2017-08-09] MEDS: guaiFENesin 600 MG TAB.ER PO SCH ×2 (10:39→21:28)
[2017-08-09] MEDS ORDERED: CANN-EASE 2 GM TUBE TP PRN (16:06)
--- NOTE | 2017-08-09 16:25 | PDMN ---
Medical Necessity Medical necessity: change to IP; los>2mn for ongoing hypoxia r/t COPD exacerbation w/continued O2 needs; continue supplemental O2, nebs, abx and steroids; hx TBI; per order 08/09/17
--- NOTE | 2017-08-09 17:09 | HOSPPROG ---
Hospitalist Progress Note Assessment/Plan: Assessment: 57-year-old female presents with acute chest pain in the setting of acute COPD exacerbation Plan: 1. Chest pain. Acute, 2/2 cough -treat supportively with Tylenol and ibuprofen, cough suppressant 2. Acute COPD exacerbation. Evidenced by diffuse expiratory obstructed air movement in the setting of known COPD and ongoing tobacco use, unclear precipitant, provoked by parainfluenza -cont prednisone, scheduled duo nebs, as needed albuterol inhaler, antibiotic to shorten duration of symptoms -ongoing hypoxia and o2 requirements, remains clinically unresolved 3. Tobacco use disorder. Offered patient nicotine replacement therapy, she declined, recommend cessation 4. Headache. Chronic, cont supportive care 5. Parainfluenza viral syndrome. Likely exposure w/ homelessness Diet. Regular Prophylaxis. Low risk patient, SCDs Code. Full Disposition. Anticipated discharge uncertain, upgrade to inpatient admission status for reasonable medical necessity including unresolved COPD exacerbation, ongoing hypoxia. Subjective: patient w/ ongoing cough, improving, cont require o2 Objective: Vital Signs Temp Pulse Resp BP Pulse Ox 36.6 C 74 16 106/79 91 L 08/09/17 11:29 08/09/17 15:36 08/09/17 15:36 08/09/17 11:29 08/09/17 15:36 - Physical Exam Constitutional: no apparent distress, not in pain, chronically ill appearing, uncomfortable Cardiovascular: regular rate and rhythym, no murmur, rub, or gallop, No bradycardia Respiratory: reduced air movement (on exp bilat), expiratory wheeze (faint, late ), No inspiratory crackles, No bronchial breath sounds Gastrointestinal: normoactive bowel sounds, soft, non-tender abdomen, no palpable masses, No distension Neurologic: AAOx3, sensation intact bilaterally, No weakness Psychiatric: interacting appropriately, not anxious, not encephalopathic, thought process linear ICD10 Worksheet Patient Problems: Problems Problem Status Onset Chest pain Acute Hypoxemia Acute
[2017-08-09] MEDS: PANTOPRAZOLE SODIUM 40 MG TAB PO SCH (18:24)
[2017-08-09] MEDS: GUAIFENESIN/DM 10 ML UDCUP PO PRN (21:28)
[2017-08-09] MEDS: oxyCODONE IR 5 MG TAB PO PRN (21:29)
[2017-08-09] MEDS: BENZONATATE 100 MG CAP PO PRN (21:30)
[2017-08-10] MEDS: IPRATROPIUM/ALBUTEROL 3 ML DEYVIAL IH SCH ×4 (05:34→20:15)
[2017-08-10] MEDS: MULTIVITAMINS 1 EACH TAB PO SCH (09:08)
[2017-08-10] MEDS: PANTOPRAZOLE SODIUM 40 MG TAB PO SCH (09:08)
[2017-08-10] MEDS: guaiFENesin 600 MG TAB.ER PO SCH ×2 (09:08→21:48)
[2017-08-10] MEDS: AZITHROMYCIN 250 MG TAB PO SCH (09:08)
[2017-08-10] MEDS: ASPIRIN 81 MG CHEWABLE TAB PO SCH (09:08)
[2017-08-10] MEDS: predniSONE 20 MG TAB PO SCH (09:08)
[2017-08-10] MEDS: OMEGA-3 FATTY ACIDS 1,000 MG CAP PO SCH (09:09)
[2017-08-10] MEDS: CALCIUM CARBONATE 500 MG TAB PO SCH (09:09)
--- NOTE | 2017-08-10 10:00 | ASMTCMCOM ---
CM Note CM Note Notes: Pt admitted for chest pain and COPD exacerbation. Pt is homeless and will need to have the [facility] bed reserved at [place]. Date Signed: 08/10/2017 10:00 AM Electronically Signed By:Ella Mcnulty LCSW
[2017-08-10] MEDS: FLUTICASONE/SALMETER 250/50MCG DISKUS IH SCH ×2 (11:26→20:15)
--- NOTE | 2017-08-10 16:50 | HOSPPROG ---
Hospitalist Progress Note Assessment/Plan: Assessment: 57-year-old female presents with acute chest pain in the setting of acute COPD exacerbation Plan: 1. Chest pain. Acute, 2/2 cough -treat supportively with Tylenol and ibuprofen, cough suppressant 2. Acute COPD exacerbation. Evidenced by diffuse expiratory obstructed air movement in the setting of known COPD and ongoing tobacco use, unclear precipitant, provoked by parainfluenza -cont prednisone, scheduled duo nebs, as needed albuterol inhaler, antibiotic to shorten duration of symptoms -ongoing hypoxia and o2 requirements, remains clinically unresolved w/ increased exp wheezes today 3. Tobacco use disorder. Offered patient nicotine replacement therapy, she declined, recommend cessation 4. Headache. Chronic, cont supportive care 5. Parainfluenza viral syndrome. Likely exposure w/ homelessness Diet. Regular Prophylaxis. Low risk patient, SCDs Code. Full Disposition. Anticipated discharge 08/11, unresolved COPD exacerbation, ongoing hypoxia. Subjective: patient attempting to ambulate more, short of breath on room air Objective: Vital Signs Temp Pulse Resp BP Pulse Ox 36.8 C 86 18 134/75 H 88 L 08/10/17 15:51 08/10/17 15:51 08/10/17 15:51 08/10/17 15:51 08/10/17 15:51 08/09/17 08/10/17 08/11/17 05:59 05:59 05:59 Intake Total 1200 Balance 1200 - Physical Exam Constitutional: no apparent distress, not in pain, unkempt, No uncomfortable Cardiovascular: regular rate and rhythym, no murmur, rub, or gallop, No edema Respiratory: reduced air movement (on exp), expiratory wheeze, No inspiratory crackles, No bronchial breath sounds, No respiratory distress Gastrointestinal: normoactive bowel sounds, soft, non-tender abdomen, no palpable masses Neurologic: AAOx3, sensation intact bilaterally, No weakness Psychiatric: interacting appropriately, not anxious, not encephalopathic, thought process linear, other (talkative) ICD10 Worksheet Patient Problems: Problems Problem Status Onset Chest pain Acute Hypoxemia Acute
[2017-08-10] MEDS: BENZONATATE 100 MG CAP PO PRN (21:47)
[2017-08-10] MEDS: GUAIFENESIN/DM 10 ML UDCUP PO PRN (21:47)
[2017-08-10] MEDS: oxyCODONE IR 5 MG TAB PO PRN (21:47)
[2017-08-11] MEDS: IPRATROPIUM/ALBUTEROL 3 ML DEYVIAL IH SCH ×4 (00:06→20:20)
[2017-08-11] MEDS: GUAIFENESIN/DM 10 ML UDCUP PO PRN ×2 (02:06→20:47)
[2017-08-11] MEDS: oxyCODONE IR 5 MG TAB PO PRN ×2 (02:06→20:47)
[2017-08-11] MEDS: AZITHROMYCIN 250 MG TAB PO SCH (08:49)
[2017-08-11] MEDS: CALCIUM CARBONATE 500 MG TAB PO SCH (08:49)
[2017-08-11] MEDS: OMEGA-3 FATTY ACIDS 1,000 MG CAP PO SCH (08:49)
[2017-08-11] MEDS: PANTOPRAZOLE SODIUM 40 MG TAB PO SCH (08:49)
[2017-08-11] MEDS: ASPIRIN 81 MG CHEWABLE TAB PO SCH (08:49)
[2017-08-11] MEDS: predniSONE 20 MG TAB PO SCH (08:49)
[2017-08-11] MEDS: MULTIVITAMINS 1 EACH TAB PO SCH (08:50)
[2017-08-11] MEDS: guaiFENesin 600 MG TAB.ER PO SCH ×2 (08:50→20:47)
[2017-08-11] MEDS: FLUTICASONE/SALMETER 250/50MCG DISKUS IH SCH ×2 (08:57→20:20)
--- NOTE | 2017-08-11 15:12 | ASMTCMCOM ---
CM Note CM Note Notes: Patient wondered if [facility] could ever pull any strings to get her and her son in an apartment quicker than the [facility]? This CM told her that we could reserve a retirement bed at the retirement for her on discharge for an evening. She prefers being with her son and going to the warming facilities at the local [facility]. I happened to meet patient in the family room working a puzzle, not on O2. She thought she was doing fine w/o O2. Date Signed: 08/11/2017 03:12 PM Electronically Signed By:Sendy Montemayor LCSW
--- NOTE | 2017-08-11 15:28 | HOSPPROG ---
Hospitalist Progress Note Assessment/Plan: Assessment: 57-year-old female presents with acute chest pain in the setting of acute COPD exacerbation Plan: 1. Chest pain. Acute, 2/2 cough -treat supportively with Tylenol and ibuprofen, cough suppressant 2. Acute COPD exacerbation. Evidenced by diffuse expiratory obstructed air movement in the setting of known COPD and ongoing tobacco use, provoked by parainfluenza -cont prednisone D#4/5, scheduled duo nebs, as needed albuterol inhaler, antibiotic to shorten duration of symptoms D#4/5 -ongoing hypoxia and o2 requirements, remains clinically unresolved w/ increased exp wheezes today -d/w RN, trial wean to room air and gauge whether symptomatic between 85-90% -if patient requires o2 at discharge, then it can be ordered, but patient is particularly anxious about using it w/ her homeless status, staying in churches at night -counseled patient about this plan 3. Tobacco use disorder. Offered patient nicotine replacement therapy, she declined, recommend cessation 4. Headache. Chronic, cont supportive care 5. Parainfluenza viral syndrome. Likely exposure w/ homelessness 6. Obesity w/ BMI 35.6, increases risk of deconditioning/morbidity Diet. Regular Prophylaxis. Low risk patient, SCDs Code. Full Disposition. Anticipated discharge 08/12, unresolved COPD exacerbation, ongoing hypoxia, SW met w/ patient today to help alleviate her fears of discharge back into homeless situation, as I do not believe that she will require ongoing hospitalization until her son is able to arrange the transitional housing later this week and I believe she will likely require detention from the churches at night. Subjective: ongoing shortness of breath w/ activity, ongoing cough Objective: Vital Signs Temp Pulse Resp BP Pulse Ox 36.6 C 84 17 120/70 83 L 08/11/17 11:53 08/11/17 12:47 08/11/17 11:53 08/11/17 11:53 08/11/17 12:47 08/10/17 08/11/17 08/12/17 05:59 05:59 05:59 Intake Total 1200 300 800 Balance 1200 300 800 - Time Spent With Patient Time Spent with Patient: greater than 35 minutes Time Spent with Patient: Greater than 35 minutes spent on this patients care, greater than 50% of time spent counseling, educating, and coordinating care regarding the above mentioned plan. - Pending Discharge Pending Discharge Within 24 Hours: Yes Pending Discharge Date: 08/12/17 Pending Discharge Time: 11:00 - Physical Exam Constitutional: not in pain, chronically ill appearing, obese, No uncomfortable Cardiovascular: regular rate and rhythym, no murmur, rub, or gallop Respiratory: reduced air movement (obstructed exp movement), expiratory wheeze, No inspiratory crackles, No bronchial breath sounds, No respiratory distress Gastrointestinal: normoactive bowel sounds, soft, non-tender abdomen, no palpable masses Neurologic: AAOx3 Psychiatric: interacting appropriately, not anxious, not encephalopathic, thought process linear ICD10 Worksheet Patient Problems: Problems Problem Status Onset Chest pain Acute Hypoxemia Acute
[2017-08-12] MEDS: GUAIFENESIN/DM 10 ML UDCUP PO PRN (00:53)
[2017-08-12] MEDS: oxyCODONE IR 5 MG TAB PO PRN (00:53)
[2017-08-12] MEDS: IPRATROPIUM/ALBUTEROL 3 ML DEYVIAL IH SCH ×2 (05:14→09:16)
[2017-08-12 07:52] VITALS: BP 135/77; RESP 18; TEMP 97.9
[2017-08-12] MEDS: ASPIRIN 81 MG CHEWABLE TAB PO SCH (08:02)
[2017-08-12] MEDS: PANTOPRAZOLE SODIUM 40 MG TAB PO SCH (08:03)
[2017-08-12] MEDS: predniSONE 20 MG TAB PO SCH (08:03)
[2017-08-12] MEDS: guaiFENesin 600 MG TAB.ER PO SCH (08:03)
[2017-08-12] MEDS: OMEGA-3 FATTY ACIDS 1,000 MG CAP PO SCH (08:03)
[2017-08-12] MEDS: CALCIUM CARBONATE 500 MG TAB PO SCH (08:03)
[2017-08-12] MEDS: MULTIVITAMINS 1 EACH TAB PO SCH (08:03)
[2017-08-12] MEDS: AZITHROMYCIN 250 MG TAB PO SCH (08:03)
[2017-08-12] MEDS: FLUTICASONE/SALMETER 250/50MCG DISKUS IH SCH (09:16)
[2017-08-12 09:24] VITALS: PULSE 83; O2SAT 94
--- NOTE | 2017-08-12 13:00 | ASMTCMCOM ---
CM Note CM Note Notes: Reviewed chart and discussed w/RN. Met w/pt and son. She anticipates being dc'd today and plans to stay at one of the [facility], son says he knows the schedule of these. Pt asked if we have any money or gas cards to give them; discussed w/CM mgr, Tete and we do not currently have any gas cards to give. Offered bus passes but pt declined since they have car. Date Signed: 08/12/2017 01:00 PM Electronically Signed By:Harini Suarez RN
--- NOTE | 2017-08-12 13:28 | PDDCSUM ---
Discharge Summary Discharge Summary: DISCHARGE DIAGNOSES: -acute respiratory failure, hypoxemic -COPD exacerbation acute, on chronic -acute parainfluenza virus infection -chest wall pain due to cough HOSPITAL COURSE SUMMARY: This patient with COPD and ongoing smoking presented with acute illness with cough chest discomfort [id number]. She was found have parainfluenza virus infection. She was admitted to the hospital and treated with bronchodilators steroids and oxygen. Her response was good although somewhat slow and she remained in the hospital for a few days recovering from her illness but until now. At this point she is able to ambulate in the hallway with these, is able to okay without oxygen, has no signs of sepsis or persisting infection. She is felt stable for discharge to home. She will follow up at [facility] where her usual primary care physician is. PENDING TEST RESULTS: None MEDICATION CHANGES: Prednisone 20 mg 2 more days after discharge A prescription for Tessalon Perles as given which she can fill if she has ongoing difficulty with cough FOLLOW-UP PLAN: [facility] next week
== END 2017-08-12 14:10 | disposition home or self-care (01) | DRG 189 ==
LOC: EDUNIT# → F1N 13:26 → OBSVTOIN 08-09 15:30
PROVIDERS: ADMIT Internal Medicine; ATTEND Internal Medicine
DX: J96.01 Acute respiratory failure with hypoxia (principal); J44.1 Chronic obstructive pulmonary disease with (acute) exacerbation; J20.4 Acute bronchitis due to parainfluenza virus; R51 Headache; F17.200 Nicotine dependence, unspecified, uncomplicated; R07.89 Other chest pain; R91.1 Solitary pulmonary nodule; E66.9 Obesity, unspecified; Z68.35 Body mass index [BMI] 35.0-35.9, adult; Z79.82 Long term (current) use of aspirin; Z87.820 Personal history of traumatic brain injury; Z88.0 Allergy status to penicillin; Z59.0 Homelessness
CPT/HCPCS: G0378

== ENCOUNTER 2017-08-16 17:24 | Observation (INO) | payer MEDICAID ==
[2017-08-16] MEDS ORDERED: ALBUTEROL 3 ML DEYVIAL IH ONE (17:34)
[2017-08-16] MEDS ORDERED: IPRATROPIUM/ALBUTEROL 3 ML DEYVIAL IH ONE (17:34)
[2017-08-16] MEDS ORDERED: IPRATROPIUM/ALBUTEROL 3 ML DEYVIAL ONE (17:34)
--- NOTE | 2017-08-16 17:34 | EDPHY ---
H & P Stated Complaint: SOB, cough, PINEDA, knee, back pain. "Needs oxygen" Time Seen by Provider: 08/16/17 17:26 HPI/ROS: CHIEF COMPLAINT: Cough, dyspnea HISTORY OF PRESENT ILLNESS: The patient is a homeless 57-year-old female with history of COPD who presents to the ED with weakness, cough and hypoxemia. The patient was admitted to the hospital approximately week ago. She was hospitalized for 3 days. During that time she was treated with bronchodilators and supplemental oxygen. She was discharged home with prednisone and was noted not to be hypoxemic. She reports worsening respiratory symptoms over the past several days. The patient is a smoker. The patient has been using her Advair and albuterol. The patient denies any asymmetric calf pain or swelling. She was recently evaluated for a possible pulmonary embolism with a negative chest CT scan. REVIEW OF SYSTEMS: A comprehensive 10 point review of systems is otherwise negative aside from elements mentioned in the history of present illness. Source: Patient Exam Limitations: No limitations - Medical/Surgical History Hx Asthma: No Hx Chronic Respiratory Disease: Yes Hx Diabetes: No Hx Cardiac Disease: No Hx Renal Disease: No Hx Cirrhosis: No Hx Alcoholism: No Hx HIV/AIDS: No Hx Splenectomy or Spleen Trauma: No Other PMH: COPD, BREAST SURGERY, TUBAL HIST, KNEE L, MENINGITIS X3 - Social History Smoking Status: Heavy smoker - Physical Exam Exam: General Appearance: Slightly disheveled, no acute distress Eyes: Pupils equal and round no pallor or injection ENT, Mouth: Mucous membranes moist Respiratory: Mild tachypnea Cardiovascular: Regular rate and rhythm Gastrointestinal: Abdomen is soft and nontender, no masses, bowel sounds normal Neurological: A&O, normal motor function, normal sensory exam, normal cranial nerves Skin: Warm and dry, no rashes Musculoskeletal: Neck is supple nontender Extremities: symmetrical, full range of motion Constitutional: Initial Vital Signs Temperature (C) 36.6 C 08/16/17 17:28 Heart Rate 92 08/16/17 17:28 Respiratory Rate 18 08/16/17 17:28 Blood Pressure 102/69 08/16/17 17:28 O2 Sat (%) 84 L 08/16/17 17:28 O2 Delivery Mode Room Air O2 (L/minute) 4 Allergies/Adverse Reactions: penicillin G Allergy (Verified 08/08/17 06:53) Home Medications: Medication Instructions Recorded Aspirin [Aspirin 81mg (*)] 81 mg PO DAILY 07/09/17 Fluticasone/Salmeter 250/50Mcg 1 puffs IH BID 07/09/17 [Advair 250/50 (*)] Albuterol [Proventil Inhaler HFA 1 - 2 puffs IH Q4-6PRN PRN 08/08/17 (*)] Calcium Carbonate [[place]yster Shell 500 mg PO DAILY 08/08/17 Calcium 500 mg (*)] Multivitamins [Multivitamin (*)] 1 each PO DAILY 08/08/17 [place]-3 Fatty Acids [Fish Oil 1000 1,000 mg PO DAILY 08/08/17 mg (*)] Benzonatate [Tessalon [place]] 200 mg PO TID PRN #30 cap 08/12/17 guaiFENesin/DEXTROMETHORPHAN 10 ml PO Q4HRS PRN ml 08/12/17 [Robitussin Dm Oral Liquid (*)] predniSONE 20 mg PO DAILY #2 tablet 08/12/17 Medical Decision Making - Diagnostics Imaging Results: Imaging Impressions Chest X-Ray 08/16/17 17:34 Impression: Nothing acute radiographically. ED Course/Re-evaluation: The patient presents to the ED with a mild exacerbation of her chronic COPD. The patient has been on prednisone as an outpatient. The patient did receive a DuoNeb and albuterol nebulizer. She received an additional 20 mg of oral prednisone. The patient did have a chest x-ray which demonstrates no evidence of an acute pneumonia. The patient did have serial examinations in the ED and continues to have ongoing hypoxemia. The patient does not have resources to arrange outpatient oxygen and will require admission to the hospital to have social work get this in place for the patient. Consultation is made with Dr. Darleen Murillo from the hospitalist service who will admit the patient. Differential Diagnosis: Differential diagnosis considered includes asthma, bronchitis, pneumonia, COPD - Data Points Medications Given: Discontinued Medications Albuterol (Proventil Neb) 3 ml IH EDNOW ONE Stop: 08/16/17 17:35 Last Admin: 08/16/17 18:00 Dose: 3 ml Albuterol/Ipratropium (Duoneb) 3 ml IH EDNOW ONE Stop: 08/16/17 17:35 Last Admin: 08/16/17 17:37 Dose: 3 ml Prednisone (Prednisone) 60 mg PO EDNOW ONE Stop: 08/16/17 18:31 Last Admin: 08/16/17 18:53 Dose: Not Given Prednisone (Prednisone) 20 mg PO EDNOW ONE Stop: 08/16/17 18:52 Last Admin: 08/16/17 18:53 Dose: 20 mg Departure - Departure Disposition: [facility] Inpatient Acute Clinical Impression: Hypoxemia, COPD exacerbation Condition: Good Referrals: NONE *PRIMARY CARE P,. [Primary Care Provider] - As per Instructions
[2017-08-16] MEDS ORDERED: predniSONE 20 MG TAB PO ONE ×2 (18:30→18:51)
[2017-08-16] MEDS ORDERED: ALBUTEROL 60 PUFFS/8 GM MDI IH PRN (21:32)
[2017-08-16] MEDS ORDERED: BENZONATATE 100 MG CAP PO PRN (21:32)
[2017-08-16] MEDS ORDERED: ACETAMINOPHEN 325 MG TAB PO PRN (21:35)
[2017-08-16] MEDS ORDERED: ONDANSETRON 4 MG/2 ML VIAL IVP PRN (21:35)
[2017-08-16 21:58] VITALS: BP 116/85
[2017-08-16 22:12] VITALS: TEMP 97.7
--- NOTE | 2017-08-16 22:32 | GHP ---
[f rep st] HISTORY AND PHYSICAL DATE OF ADMISSION: 08/16/2017 CHIEF COMPLAINT: Shortness of breath. HISTORY: The patient is a 57-year-old female, just discharged from our hospital 4 days ago when she was admitted for a 4-day stay for COPD exacerbation secondary to parainfluenza. She was weaned back to room air at discharge. She is homeless. She stays at the skilled nursing. Postdischarge, she did poorly with persistent shortness of breath, coughing and wheezing. She denies any fever. She is still smo dimitry but desires to quit and has cut back, smoking only 6 cigarettes in the last 4 days. PAST MEDICAL HISTORY: 1. COPD. 2. Traumatic brain injury. PAST SURGICAL HISTORY: Hysterectomy. Craniotomy, status post trauma. MEDICATIONS: Please see computer record for full detailed list. ALLERGIES: Penicillin. SOCIAL HISTORY: She said at her worst, she smoked a pack of cigarettes every 3 days, now cutting michael k and desiring to quit completely. No alcohol. No drugs. She is homeless, staying at a skilled nursing. REVIEW OF SYSTEMS: Complete review of systems obtained. Review of systems negative regarding consti tutional, HEENT, GI, pulmonary, cardiovascular, , hematology, skin, musculoskeletal, endocrine, psy chiatric, except for positives and negatives as in the HPI. FAMILY HISTORY: Sibling with an NH at age 50. PHYSICAL EXAMINATION: GENERAL: Well-developed, well-nourished female, in no distress. VITAL SIGNS: Temperature 36.7, pulse 84, blood pressure 127/77, saturating 84% on room air. HEENT: Normal conj unctivae. Pupils reactive to light. Normal ears and nose. Hearing intact. Normal teeth. Orophary nx moist. NECK: Trachea midline. No thyromegaly. CHEST: Normal effort. LUNGS: Clear to auscult ation bilaterally. CARDIOVASCULAR: Regular rhythm. No murmur. No lower extremity edema. ABDOMEN: Soft, nontender. No hepatosplenomegaly. SKIN: Warm, dry, intact. No rash. MUSCULOSKELETAL: No cyanosis or clubbing. Strength is 5/5 upper and lower extremities. NEUROLOGIC: Cranial nerves int act. Normal sensation to light touch. PSYCHIATRIC: Alert and oriented x3. Normal affect. Normal judgment and insight. Normal memory. DATA: Chest x-ray is negative. This case was discussed with Dr. Sarah. He thinks she just needs some oxygen for discharge, but can not arrange at this time. Medical chart is reviewed. She had a CT angiogram of the chest on Decembe r 13 that was negative for PE. She was weaned to room air at discharge. ASSESSMENT AND PLAN: 1. Chronic obstructive pulmonary disease exacerbation. She has persistent hypoxemia at 84% on room air, and I will continue steroids and nebulizers, although I do not hear much wheezing at this time. I am not convinced she has actually worsened since her last hospital discharge. She may need home O 2 arranged. Will recheck a CBC and a Chem 7 in the morning. Recent CT angiogram of the chest 10 day s ago was negative for pulmonary embolism so I do not think it needs to be repeated. 2. Parainfluenza virus. This will continue to be treated supportively. 3. Tobacco dependence. She desires cessation. Will administer a nicotine patch. 4. Traumatic brain injury. Her cognitive status seems quite functional. 5. Obesity. BMI 35. CORE STATUS: Full. ADMISSION STATUS: 1. Will admit to observation. Possible discharge home tomorrow if we can increase social support an d possible home oxygen. 2. DVT prophylaxis. She is high risk. Place her on subcu Lovenox. /[id number]/MODL
[2017-08-16] MEDS: IPRATROPIUM/ALBUTEROL 3 ML DEYVIAL IH SCH (23:05)
[2017-08-16] MEDS ORDERED: MELATONIN 3 MG TAB PO PRN (23:16)
[2017-08-17] MEDS: IPRATROPIUM/ALBUTEROL 3 ML DEYVIAL IH SCH ×2 (05:26→11:37)
[2017-08-17 05:49] LABS: % IMMATURE GRANULYOCYTES 0.5 % (0.0-1.1); ABSOLUTE IMMATURE GRANULOCYTES 0.08 10^3/uL (0.00-0.10); ADD DIFF? NO; ADD MORPH? NO; ADD SCAN? NO; ATYPICAL LYMPHOCYTE FLAG 0 (0-99); FRAGMENT RBC FLAG 0 (0-99); HEMATOCRIT 39.1 % (38.0-47.0); HEMOGLOBIN 13.1 g/dL (12.6-16.3); LEFT SHIFT FLG 0 (0-99); LIPEMIA HEMOLYSIS FLAG 80 (0-99); MEAN CELL HEMOGLOBIN 30.2 pg (27.9-34.1); MEAN CELL HEMOGLOBIN CONCENTR. 33.5 g/dL (32.4-36.7); MEAN CELL VOLUME 90.1 fL (81.5-99.8); PLATELET CLUMPS FLAG 0 (0-99); PLATELET COUNT 298 10^3/uL (150-400); RED BLOOD CELL COUNT 4.34 10^6/uL (4.18-5.33); RED CELL DISTRIBUTION WIDTH 13.8 % (11.5-15.2)
[2017-08-17 06:19] LABS: ANION GAP 10 mEq/L (8-16); CALCIUM 9.2 mg/dL (8.5-10.4); CARBON DIOXIDE 26 mEq/l (22-31); CHLORIDE 106 mEq/L (97-110); CREATININE 0.5 mg/dL (0.6-1.0); GLOMERULAR FILTRATION RATE > 60; GLUCOSE 93 mg/dL (70-100); POTASSIUM 4.2 mEq/L (3.5-5.2); SODIUM 142 mEq/L (134-144)
[2017-08-17] MEDS ORDERED: PANTOPRAZOLE SODIUM 40 MG TAB PO SCH (09:00)
[2017-08-17] MEDS ORDERED: ASPIRIN 81 MG CHEWABLE TAB PO SCH (09:00)
[2017-08-17] MEDS ORDERED: CALCIUM CARBONATE 500 MG TAB PO SCH (09:00)
[2017-08-17] MEDS ORDERED: FLUTICASONE/SALMETER 250/50MCG DISKUS IH SCH (09:00)
[2017-08-17] MEDS ORDERED: NICOTINE 7 MG/24 HR PATCH TD SCH (09:00)
[2017-08-17] MEDS ORDERED: ENOXAPARIN 40 MG/0.4 ML SYR SC SCH (09:00)
[2017-08-17] MEDS ORDERED: predniSONE 20 MG TAB PO SCH (09:00)
--- NOTE | 2017-08-17 10:19 | HOSPPROG ---
Hospitalist Progress Note Assessment/Plan: Patient is a 57 y/o female who was admitted for shortness of breath. She was recently here for COPD exacerbation secondary to the influenza. She is homeless and stays at the care home. * hypoxemia with underlying COPD exacerbation -on steroids and nebulizers -recent CTA was negative for a pulmonary embolus -O2 sats after walking initially were 87% and then increased to 92% -on admission oxygen levels were 84% on room air * parainfluenza virus -supportive treatment * nicotine dependence -nicotine patch ordered * morbid obesity with a BMI of 35 * traumatic brain injury *leukocytosis -secondary to steroids *Plan: dc/ she is homeless and stays at various churches, will see if oxygen can be arranged. She has a car.May be difficult to set up oxygen due to no address. Subjective: Leah would like to stay another night. Has no complaints, the oxygen makes her feel better. Objective: Vital Signs Temp Pulse Resp BP Pulse Ox 36.5 C 74 16 116/85 H 94 08/16/17 20:40 08/16/17 23:09 08/16/17 23:09 08/16/17 20:40 08/16/17 23:09 Laboratory Results 08/17/17 05:04 08/17/17 05:04 - Physical Exam Constitutional: no apparent distress, appears nourished, obese Eyes: PERRL Ears, Nose, Mouth, Throat: hearing normal, poor dentition Cardiovascular: regular rate and rhythym, tachycardia Respiratory: no respiratory distress, reduced air movement, No expiratory wheeze Skin: warm Musculoskeletal: full muscle strength Neurologic: AAOx3 Psychiatric: interacting appropriately ICD10 Worksheet Patient Problems: Problems Problem Status Onset COPD exacerbation Acute Hypoxemia Acute Chest pain Acute
--- NOTE | 2017-08-17 11:11 | PDHOMEO2F ---
Home Oxygen Face to Face Home Orders: I certify that a physician or a nurse practitioner or physician's account assistant has had a [id number] encounter with this patient on the date of this order due to the diagnosis listed, which relates to the primary reason the patient requires home oxygen. Alternative treatments have been tried, or considered, and deemed ineffective. It is anticipated that supplemental oxygen will result in improvement with treatment. Home oxygen qualifying diagnosis: copd exacerbation Home oxygen secondary diagnosis: influenza recently SpO2 on room air (%): 84 Frequency of home oxygen needed: continuous Home oxygen liters per minute: 2 Home oxygen delivery device: nasal cannula Concentrator: Yes E-tanks for mobility and back up: Yes If ordering portable O2, is the patient mobile in the home?: Yes I certify that, based on these findings, the home oxygen is medically necessary for this patient for the following length of time. Length of time home oxygen needed: 99 years
[2017-08-17 11:44] VITALS: PULSE 82; RESP 18; O2SAT 90
--- NOTE | 2017-08-17 12:48 | GDS ---
[f rep st] DISCHARGE SUMMARY DISCHARGE DIAGNOSES: 1. Chronic obstructive pulmonary disease exacerbation with associated hypoxemia. 2. Recent parainfluenza virus. 3. Nicotine dependence. 4. Obesity with a body mass index of 35. 5. Traumatic brain injury. 6. Leukocytosis. HISTORY OF PRESENT ILLNESS: Briefly, the patient is a 57-year-old female who was just discharged from the hospital 4 days ago. She had a recent COPD exacerbation secondary to parainfluenza. She weaned back to room air at discharge. Currently, she is homeless. She is still smoking, wants to quit, and has only had 6 cigarettes for the past 4 days. During my evaluation today, she is markedly improved. Her oxygen levels on room air are low 90s, but she was at 84% on admission. The difficulty with getting her oxygen is that she does not have an address for delivery. She stays at various churches. Case Management and respiratory therapist are evaluating if they can arrange this. HOSPITAL COURSE: 1. Hypoxemia with underlying COPD exacerbation. She is much improved. 2. Parainfluenza virus on supportive treatment. 3. Nicotine dependence. She is very motivated to quit smoking. 4. Obesity. She has a BMI of 35. 5. Traumatic brain injury, functioning quite well. 6. Leukocytosis secondary to steroids. DISCHARGE CONDITION: Stable. Blood pressure is 116/85, pulse is 74, respiratory rate 16, temperature 36.5 Celsius, O2 saturation on room air 91%. MEDICATIONS AT DISCHARGE: Please see the EMR. DISCHARGE INSTRUCTIONS: 1. The hospital will try and arrange oxygen if able. This may be very difficult due to her living situation. 2. Reviewed with her how to do pursed breathing and to try to recover slowly. 3. Recommend she cease smoking altogether. /[id number]/MODL MTDD
--- NOTE | 2017-08-17 14:11 | ASMTCMCOM ---
CM Note CM Note Notes: Spoke with pt re; dc poc. Pt has [facility] staying [facility] on a nightly basis with son. They keep their belongings in their car. Pt states they are working with [facility] and are close to getting an apt. Pt declined bed at [facility] and does not need clothes. DC Plan: To [facility] Rodrigues Date Signed: 08/17/2017 02:11 PM Electronically Signed By:Connie Davis RN
--- NOTE | 2017-08-18 14:42 | ASDISCHSUM ---
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 Pt has [facility] staying in [facility] on a nightly basis with son. They keep their belongings in their car. Pt states they are working with [facility] and are close to getting an apt. Pt declined bed at nursing home and does not need clothes. HAI Plan: To [facility] Date Signed: 08/17/2017 02:11 PM Electronically Signed By:Connie Davis RN Intervention Information
== END 2017-08-17 16:01 | disposition home or self-care (01) ==
LOC: EDUNIT# → F3E 20:53
PROVIDERS: ADMIT Internal Medicine; ATTEND Internal Medicine
DX: J44.1 Chronic obstructive pulmonary disease with (acute) exacerbation (principal); F17.200 Nicotine dependence, unspecified, uncomplicated; D72.829 Elevated white blood cell count, unspecified; E66.9 Obesity, unspecified; Z68.35 Body mass index [BMI] 35.0-35.9, adult; Z59.0 Homelessness; T38.0X5A Adverse effect of glucocorticoids and synthetic analogues, initial encounter
CPT/HCPCS: 71020; 99285; G0378; J1650

== ENCOUNTER 2017-08-20 06:41 | Emergency (ER) | payer MEDICAID ==
--- NOTE | 2017-08-20 06:47 | EDPHY ---
H & P Time Seen by Provider: 08/20/17 06:46 HPI/ROS: CHIEF COMPLAINT: Chest pain and abdominal pain HISTORY OF PRESENT ILLNESS: Patient was admitted to our hospital from 08/08-2017 and 08/16- with COPD exacerbation from parainfluenza. She had CT angiography negative for pulmonary embolism on August 07. Patient presents saying she had some abdominal pain yesterday which started radiating up into her chest an hour before arrival today. Not exertional, does not radiate, not positional, not associated with vomiting. She has some diarrhea. Sensation is sharp. Does not have jaw or arm symptoms. REVIEW OF SYSTEMS: Eye: no change in vision ENT: no sore throat Cardiac: HPI no syncope Pulmonary: Chronic cough since her parainfluenza, unchanged. No hemoptysis. Abdomen: HPI Musculoskeletal: no back pain Skin: no rash Neuro: Mild headache, stable from previous hospitalization Constitutional: no fever : no urinary symptoms A comprehensive 10 point review of systems is otherwise negative aside from elements mentioned in the history of present illness. PAST MEDICAL HISTORY: As in HPI, includes traumatic brain injury with craniotomy, hysterectomy, COPD. Negative for hypercholesterolemia diabetes or hypertension. Social history: Current nonsmoker, last cigarette 2 days ago. Negative for cocaine or other drugs. General Appearance: Alert and conversant, cooperative. Eyes: No scleral icterus. ENT, Mouth: Normal mucous membranes. Respiratory: Occasional expiratory wheezing. Cardiovascular: Regular rate and rhythm. Tachycardic. Gastrointestinal: Some epigastric tenderness but no rebound or guarding, negative Smith sign. Neurological: Alert and oriented x3. Normally conversant. Face symmetric, normal movement and sensation in all extremities. Skin: Warm and dry, no rashes. Musculoskeletal: No peripheral edema and no joint swelling. No calf tenderness. Psychiatric: Not agitated. Emergency Department course/MDM: Patient presents with persistent mild hypoxemia although her respiratory symptoms appear to be stable. Think her presentation is low risk for ACS given clinical history. Plan to check LFTs and lipase, GI cocktail, troponin. Pulmonary embolism would be unlikely. 710: White blood cell count noted at 19,000, patient has been on steroids until yesterday. Normal LFTs, lipase, and troponin. 722: Chest x-ray shows some mild right lower lung atelectasis, negative for pneumonia or other acute cardiopulmonary abnormality. 924: O2 sat 91% on room air. Seen by case management to facilitate discharge planning. Smoking Status: Heavy smoker Constitutional: Initial Vital Signs Temperature (C) 36.7 C 08/20/17 06:47 Heart Rate 122 H 08/20/17 06:47 Respiratory Rate 20 08/20/17 06:47 Blood Pressure 91/74 L 08/20/17 06:47 O2 Sat (%) 88 L 08/20/17 06:47 O2 Delivery Mode Room Air O2 (L/minute) 2 Allergies/Adverse Reactions: penicillin G Allergy (Verified 08/20/17 06:49) Home Medications: Medication Instructions Recorded Aspirin [Aspirin 81mg (*)] 81 mg PO DAILY 07/09/17 Fluticasone/Salmeter 250/50Mcg 1 puffs IH BID 07/09/17 [Advair 250/50 (*)] Albuterol [Proventil Inhaler HFA 1 - 2 puffs IH Q4-6PRN PRN 08/08/17 (*)] Calcium Carbonate [Oyster Shell 08/08/17 Calcium 500 mg (*)] Multivitamins [Multivitamin (*)] 1 each PO DAILY 08/08/17 [place]-3 Fatty Acids [Fish Oil 1000 1,000 mg PO DAILY 08/08/17 mg (*)] Benzonatate [Tessalon Pearles] 200 mg PO TID PRN #30 cap 08/12/17 predniSONE 20 mg PO DAILY #2 tablet 08/12/17 Omeprazole 20 mg PO DAILY 08/16/17 Medical Decision Making - Diagnostics EKG Interpretation: 12-lead EKG interpreted by me; official reading is in trace master. My interpretation is sinus tachycardia rate 120, no ischemic changes. Imaging Results: Imaging Impressions Chest X-Ray 08/20/17 06:52 Impression: Nothing acute identified. Differential Diagnosis: Differential diagnosis considered for chest pain including but not limited to gallbladder disease, pancreatitis, myocardial ischemia, aortic dissection, pericarditis, pulmonary embolus, chest wall pain, pleural inflammation and pulmonary infectious causes. - Data Points Laboratory Results: Laboratory Results 08/20/17 06:40 08/20/17 06:40 08/20/17 08/20/17 06:40 06:40 WBC 19.28 10^3/uL H 10^3/uL (3.80-9.50) RBC 5.12 10^6/uL 10^6/uL (4.18-5.33) Hgb 15.9 g/dL g/dL (12.6-16.3) Hct 47.3 % H % (38.0-47.0) MCV 92.4 fL fL (81.5-99.8) MCH 31.1 pg pg (27.9-34.1) MCHC 33.6 g/dL g/dL (32.4-36.7) RDW 14.6 % % (11.5-15.2) Plt Count 55 10^3/uL L 10^3/uL (150-400) MPV 12.1 fL H fL (8.7-11.7) Neut % (Auto) 87.4 % H % (39.3-74.2) Lymph % (Auto) 5.7 % L % (15.0-45.0) Logan % (Auto) 5.4 % % (4.5-13.0) Eos % (Auto) 0.6 % % (0.6-7.6) Baso % (Auto) 0.4 % % (0.3-1.7) Nucleat RBC Rel Count 0.0 % % (0.0-0.2) Absolute Neuts (auto) 16.86 10^3/uL H 10^3/uL (1.70-6.50) Absolute Lymphs (auto) 1.09 10^3/uL 10^3/uL (1.00-3.00) Absolute Monos (auto) 1.04 10^3/uL H 10^3/uL (0.30-0.80) Absolute Eos (auto) 0.12 10^3/uL 10^3/uL (0.03-0.40) Absolute Basos (auto) 0.07 10^3/uL 10^3/uL (0.02-0.10) Absolute Nucleated RBC 0.00 10^3/uL 10^3/uL (0-0.01) Immature Gran % 0.5 % % (0.0-1.1) Immature Gran # 0.10 10^3/uL 10^3/uL (0.00-0.10) Sodium 146 mEq/L H mEq/L (134-144) Potassium 4.4 mEq/L mEq/L (3.5-5.2) Chloride 106 mEq/L mEq/L (97-110) Carbon Dioxide 25 mEq/l mEq/l (22-31) Anion Gap 15 mEq/L mEq/L (8-16) BUN 15 mg/dL mg/dL (7-23) Creatinine 0.6 mg/dL mg/dL (0.6-1.0) Estimated GFR > 60 Glucose 103 mg/dL H mg/dL (70-100) Calcium 9.4 mg/dL mg/dL (8.5-10.4) Total Bilirubin 1.3 mg/dL mg/dL (0.1-1.4) Conjugated Bilirubin 0.4 mg/dL mg/dL (0.0-0.5) Unconjugated Bilirubin 0.9 mg/dL mg/dL (0.0-1.1) AST 45 IU/L IU/L (14-46) ALT 47 IU/L IU/L (9-52) Alkaline Phosphatase 98 IU/L IU/L (38-126) Troponin I < 0.012 ng/mL ng/mL (0.000-0.034) Total Protein 7.0 g/dL g/dL (6.3-8.2) Albumin 3.8 g/dL g/dL (3.5-5.0) Lipase 134 IU/L IU/L (23-300) Specimen Hemolysis 107 Medications Given: Discontinued Medications Acetaminophen (Tylenol) 650 mg PO EDNOW ONE Stop: 08/20/17 07:10 Last Admin: 08/20/17 07:10 Dose: 650 mg Al Hydroxide/Mg Hydroxide (Maalox Susp) 30 ml PO ONCE ONE Stop: 08/20/17 06:53 Last Admin: 08/20/17 07:08 Dose: 30 ml Albuterol/Ipratropium (Duoneb) 3 ml IH EDNOW ONE Stop: 08/20/17 06:53 Last Admin: 08/20/17 07:08 Dose: 3 ml Hyoscyamine Sulfate (Levsin, Hyomax-Sl) 0.25 mg PO ONCE ONE Stop: 08/20/17 06:53 Last Admin: 08/20/17 07:08 Dose: 0.25 mg Lidocaine (Lidocaine 2% Viscous) 15 ml PO ONCE ONE Stop: 08/20/17 06:53 Last Admin: 08/20/17 07:08 Dose: 15 ml Departure - Departure Disposition: Home, Routine, Self-Care Clinical Impression: COPD exacerbation Chest pain Qualifiers: Chest pain type: unspecified Qualified Code(s): R07.9 - Chest pain, unspecified Condition: Good Instructions: Chest Pain (ED) Referrals: [facility],. [Clinic] - As per Instructions
--- NOTE | 2017-08-20 06:48 | CPEKG ---
Heart Rate: 119 RR Interval: 504 P-R Interval: 144 QRSD Interval: 76 QT Interval: 324 QTC Interval: 456 P [place]: 77 QRS [place]: 108 T Wave [place]: 74 EKG Severity - OTHERWISE NORMAL ECG - EKG Impression: SINUS TACHYCARDIA EKG Impression: RIGHT AXIS DEVIATION Electronically Signed By: Adrian Garcia 20-Aug-2017 07:11:17
[2017-08-20] MEDS ORDERED: MAG HYDROX/AL HYDROX/SIMETH 30 ML UDCUP PO ONE (06:52)
[2017-08-20] MEDS ORDERED: LIDOCAINE 2% VISCOUS 15 ML UDCUP PO ONE (06:52)
[2017-08-20] MEDS ORDERED: HYOSCYAMINE SULFATE 0.125 MG TAB PO ONE (06:52)
[2017-08-20] MEDS ORDERED: IPRATROPIUM/ALBUTEROL 3 ML DEYVIAL IH ONE (06:52)
[2017-08-20 06:56] LABS: PLATELET COUNT 55 10^3/uL (150-400)
[2017-08-20] MEDS ORDERED: ACETAMINOPHEN 325 MG TAB ONE (07:05)
[2017-08-20] MEDS ORDERED: ACETAMINOPHEN 325 MG TAB PO ONE (07:09)
[2017-08-20 09:51] VITALS: BP 111/71; PULSE 88; RESP 16; TEMP 98.6; O2SAT 91
--- NOTE | 2017-08-20 10:44 | ASMTCMCOM ---
CM Note CM Note Notes: Spoke with patient about outpatient follow-up care. Patient had an appointment at [facility] this morning at 9:20am but states she didn't remember the scheduled time. Patient offered an appointment this evening at 5pm but declined. Patient agreeable to an appointment tomorrow 08/21/17 at at 10am (arrival 9:45am) to discuss possible need for home oxygen (if she starts staying at [facility] or gets an apt), a nebulizer machine, and home medications. Patient states she has nebulizer mask and vials of medication, but doesn't have a machine. Spoke with Rosalba at ; he will relay these possible needs to the provider. Rosalba will also have their homeless outreach RN, Blanca, reach out to patient if possible. Patient recently moved from [place] with her son, Epifanio, in June and they are living out of their car. Patient has been to the ED 5 times (admitted twice) since 07/09. Patient states she would like to be admitted: "I'm not going to get better until I don't have to be outside." We discussed that she has been offered the reserved bed at the long-term a couple of times and she has always declined. Patient states "I don't want to mess up with [facility], they're really close to getting us an apartment." This CM tried to reassure patient that staying at the long-term shouldn't delay or interfere with [facility] helping get her and her son an apartment. Patient also states she wants to be able to stay with her son and not be . Patient asked "what other services are you going to provide me?" This CM asked what else she might need, patient replied "well our car doesn't have any gas and we don't have any money. We don't have any food. The lady last time gave me sandwiches and juice and a whole bag of food." This CM informed the patient that we don't have funds or any way to provide gas, and that we don't provide meals. This CM offered to provide her with a list of where to get food assistance, including free [employer] meals, [employer] food pantry, and Dept of Health and Human Services (food stamps), [employer], etc. and patient said "I already have all of that." CM available for further assistance if needed. Date Signed: 08/20/2017 10:44 AM Electronically Signed By:Alize Oneal RN
--- NOTE | 2017-08-20 10:47 | ASDISCHSUM ---
Discharge Information Plan Status:Homeless/Nursing Home Medically Cleared to Leave: Discharge Date:08/20/2017 09:50 AM CM D/C Disposition:Streets (Homeless) ADT D/C Disposition:Home, Routine, Self-Care Projected Discharge Date:08/20/2017 09:50 AM Transportation at D/C:Self Discharge Delay Reason: Follow-Up Date:08/20/2017 09:50 AM Discharge Slot: Final Diagnosis: Placement Information Patient Contact Information Contact Name:FERNANDA Relationship:Kleber Address: Work Phone: City: [facility] Phone: State/Zip Code: Email: Financial Information Financial Class: Primary Plan Desc: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 Patient had an appointment at [facility] this morning at 9:20am but states she didn't remember the scheduled time. Patient offered an appointment this evening at 5pm but declined. Patient agreeable to an appointment tomorrow 08/21/17 at at 10am (arrival 9:45am) to discuss possible need for home oxygen (if she starts staying at [facility] or gets an apt), a nebulizer machine, and home medications. Patient states she has nebulizer mask and vials of medication, but doesn't have a machine. Spoke with Rosalba at ; he will relay these possible needs to the provider. Rosalba will also have their homeless outreach RN, Blanca, reach out to patient if possible. Patient recently moved from [place] with her son, Epifanio, in June and they are living out of their car. Patient has been to the ED 5 times (admitted twice) since 07/09. Patient states she would like to be admitted: "I'm not going to get better until I don't have to be outside." We discussed that she has been offered the reserved bed at the custodial a couple of times and she has always declined. Patient states "I don't want to mess up with [facility], they're really close to getting us an apartment." This CM tried to reassure patient that staying at the custodial shouldn't delay or interfere with [facility] helping get her and her son an apartment. Patient also states she wants to be able to stay with her son and not be . Patient asked "what other services are you going to provide me?" This CM asked what else she might need, patient replied "well our car doesn't have any gas and we don't have any money. We don't have any food. The lady last time gave me sandwiches and juice and a whole bag of food." This CM informed the patient that we don't have funds or any way to provide gas, and that we don't provide meals. This CM offered to provide her with a list of where to get food assistance, including free [employer] meals, [employer] food pantry, and Dept of Health and Human Services (food stamps), [employer], etc. and patient said "I already have all of that." CM available for further assistance if needed. Date Signed: 08/20/2017 10:44 AM Electronically Signed By:Alize Oneal RN LACE LACE Acuity / Level of Care Answers: No. Comorbidities - select Answers: Chronic pulmonary disease all that apply Emergency dept visits in Answers: 4+ last 6 months Score: 6 Date Signed: 08/20/2017 10:45 AM Electronically Signed By:Alize Oneal RN Intervention Information Intervention Type:Health Clinic Date of Service:08/20/2017 10:45 AM Patient Type:Emergency Room Staff Member:MARILYN Oneal Sharon Hours:0.5 Discipline:Physical Chemist Severity: Comment:Arranged follow-up appointment at [facility].
== END 2017-08-20 09:50 | disposition home or self-care (01) ==
LOC: EDUNIT#
DX: R07.9 Chest pain, unspecified (principal); J44.1 Chronic obstructive pulmonary disease with (acute) exacerbation; F17.200 Nicotine dependence, unspecified, uncomplicated; Z79.82 Long term (current) use of aspirin; Z90.710 Acquired absence of both cervix and uterus

== ENCOUNTER 2017-08-22 19:07 | Inpatient (IN) | payer MEDICAID ==
[2017-08-22] MEDS ORDERED: methylPREDNISolone SOD SUCC 125 MG/2 ML VIAL IVP ONE (19:09)
[2017-08-22] MEDS ORDERED: ALBUTEROL 3 ML DEYVIAL IH ONE ×3 (19:09→19:23)
--- NOTE | 2017-08-22 19:09 | EDPHY ---
H & P Time Seen by Provider: 08/22/17 19:08 HPI/ROS: CHIEF COMPLAINT: Shortness of breath HISTORY OF PRESENT ILLNESS: Patient has COPD and was admitted from August 08 through COPD exacerbation from parainfluenza. She was readmitted on August 16 through the and seen by myself in the emergency department on August 20. She says she got worse starting yesterday August 21, with persistent cough and worsening shortness of breath. She says she is not currently taking steroids although she was prescribed them on August 20; says she could not get the prescription filled. Patient says she has worsening left-sided chest pain when she breathes or coughs. She has severe shortness of breath worse with lying down or exertion. REVIEW OF SYSTEMS: Eye: no change in vision ENT: no sore throat Cardiac: HPI no palpitations or syncope Pulmonary: HPI Abdomen: No diarrhea. Says she has some vomiting which is post-tussive emesis. Generalized lower abdominal pain without dysuria. Musculoskeletal: no back pain or leg swelling Skin: no rash Neuro: no headache Constitutional: no fever : no urinary symptoms; no dysuria or urinary frequency A comprehensive 10 point review of systems is otherwise negative aside from elements mentioned in the history of present illness. PAST MEDICAL HISTORY: COPD and recent parainfluenza. TBI and craniotomy. EMILEE/ BSO. GERD. Social history: Currently homeless, last cigarette was about a week ago General Appearance: Alert and conversant, cooperative. Eyes: No scleral icterus. ENT, Mouth: Normal mucous membranes. Respiratory: Decreased breath sounds bilaterally, does have retractions and extra work of breathing. Cardiovascular: Regular rate and rhythm. Gastrointestinal: Abdomen is soft and non tender. She does not have any McBurney's point tenderness. No rebound or guarding. Negative Smith sign. Not distended. Neurological: Alert, normally conversant, normal motor and sensory. She can transfer herself independently from the gurney to the bed. Skin: Warm and dry, no rashes. Musculoskeletal: No calf tenderness Psychiatric: Not agitated. Emergency Department course/MDM: Albuterol nebulizer, IV steroids, chest x-ray, EKG. Supplemental oxygen applied as her initial room air saturation is 81%. 1931: Chest x-ray shows bronchitis pattern, no pneumothorax or pneumonia. 1999: The patient was reexamined, still is very tight, very slightly audible wheezes. Probable admission for severe COPD exacerbation, will do CT angiogram in light of worsening chest pain and elevated D-dimer. She now has a headache, states she is feeling weird from the albuterol, is anxious. 1 g oral Tylenol, 1 mg IV Ativan. Her abdominal pain is minimal, think UTI or SBO or appendicitis or other emergent medical problem unlikely. Will need to be admitted for severe symptoms and hypoxemia. Still needs 5 liters NC to maintain saturations over 90%. 2117: Suboptimal chest CT angiography study per Dr. Haas, no central large embolus seen, otherwise negative study. Can't exclude peripheral clot. At this point I think PE unlikely. Smoking Status: Heavy smoker Constitutional: Initial Vital Signs Temperature (C) 36.9 C 08/22/17 19:10 Heart Rate 100 08/22/17 19:10 Respiratory Rate 18 08/22/17 19:10 Blood Pressure 126/77 H 08/22/17 19:10 O2 Sat (%) 91 L 08/22/17 19:10 O2 Delivery Mode Nasal Cannula O2 (L/minute) 2 Allergies/Adverse Reactions: penicillin G Allergy (Verified 08/22/17 19:22) Home Medications: Medication Instructions Recorded Aspirin [Aspirin 81mg (*)] 81 mg PO DAILY 07/09/17 Fluticasone/Salmeter 250/50Mcg 1 puffs IH BID 07/09/17 [Advair 250/50 (*)] Albuterol [Proventil Inhaler HFA 1 - 2 puffs IH Q4-6PRN PRN 08/08/17 (*)] Calcium Carbonate [Oyster Shell 500 mg PO DAILY 08/08/17 Calcium 500 mg (*)] Multivitamins [Multivitamin (*)] 1 each PO DAILY 08/08/17 [place]-3 Fatty Acids [Fish Oil 1000 1,000 mg PO DAILY 08/08/17 mg (*)] Benzonatate [Tessalon [place]] 200 mg PO TID PRN #30 cap 08/12/17 predniSONE 20 mg PO DAILY #2 tablet 08/12/17 Omeprazole 20 mg PO DAILY 08/16/17 Medical Decision Making - Diagnostics EKG Interpretation: 12-lead EKG interpreted by me; official reading is in trace master. My interpretation is sinus tachycardia with left posterior fascicular block and no acute ischemic changes. Imaging Results: Imaging Impressions Chest X-Ray 08/22/17 19:09 Impression: 1. Mild bronchitis/airways disease. 2. No definite focal pneumonia or pleural effusion. Chest/Thorax CTA 08/22/17 19:58 Impression: 1. Nondiagnostic for pulmonary emboli due to motion artifact and contrast timing. 2. No pneumonia, pleural effusion, or pneumothorax. Findings and recommendations discussed with Emergency Department physician, Adrian Garcia M.D., at 2119 hours, on August 22, 2017. Final report concurs with initial preliminary interpretation. A test result has been communicated to a licensed care provider and documented in the E96 Critical Result system on 08/22/2017 21:19, Message ID [id number]. Differential Diagnosis: Differential diagnosis considered for shortness of breath including but not limited to pulmonary infectious process, COPD, asthma, pulmonary embolus and congestive heart failure. Consult/Admit Bed Type: [place] [id number] Critical Care Time: Critical care time spent by me, Dr. Garcia, exclusively with the care of this patient was 30 minutes, exclusive of PA or RISK ENGINEER time and exclusive of separate procedures. The organ system at risk was pulmonary and I ordered supplemental oxygen, multiple nebulizer bronchodilator treatments, intravenous steroids, intravenous magnesium, diagnostic studies; to stabilize the patient and prevent worsening of the patient's condition. - Data Points Laboratory Results: Laboratory Results 08/22/17 19:15 08/22/17 19:15 08/22/17 08/22/17 08/22/17 19:15 19:15 19:15 WBC 13.68 10^3/uL H 10^3/uL (3.80-9.50) RBC 4.64 10^6/uL 10^6/uL (4.18-5.33) Hgb 14.4 g/dL g/dL (12.6-16.3) Hct 42.9 % % (38.0-47.0) MCV 92.5 fL fL (81.5-99.8) MCH 31.0 pg pg (27.9-34.1) MCHC 33.6 g/dL g/dL (32.4-36.7) RDW 14.6 % % (11.5-15.2) Plt Count 260 10^3/uL D 10^3/uL (150-400) MPV 10.5 fL fL (8.7-11.7) Neut % (Auto) 75.9 % H % (39.3-74.2) Lymph % (Auto) 13.7 % L % (15.0-45.0) [place] % (Auto) 9.1 % % (4.5-13.0) Eos % (Auto) 0.5 % L % (0.6-7.6) Baso % (Auto) 0.4 % % (0.3-1.7) Nucleat RBC Rel Count 0.0 % % (0.0-0.2) Absolute Neuts (auto) 10.39 10^3/uL H 10^3/uL (1.70-6.50) Absolute Lymphs (auto) 1.88 10^3/uL 10^3/uL (1.00-3.00) Absolute Monos (auto) 1.24 10^3/uL H 10^3/uL (0.30-0.80) Absolute Eos (auto) 0.07 10^3/uL 10^3/uL (0.03-0.40) Absolute Basos (auto) 0.05 10^3/uL 10^3/uL (0.02-0.10) Absolute Nucleated RBC 0.00 10^3/uL 10^3/uL (0-0.01) Immature Gran % 0.4 % % (0.0-1.1) Immature Gran # 0.05 10^3/uL 10^3/uL (0.00-0.10) D-Dimer 0.76 ug/mLFEU H ug/mLFEU (0.00-0.50) Sodium 142 mEq/L mEq/L (134-144) Potassium 3.9 mEq/L mEq/L (3.5-5.2) Chloride 101 mEq/L mEq/L (97-110) Carbon Dioxide 33 mEq/l H D mEq/l (22-31) Anion Gap 8 mEq/L mEq/L (8-16) BUN 7 mg/dL mg/dL (7-23) Creatinine 0.6 mg/dL mg/dL (0.6-1.0) Estimated GFR > 60 Glucose 101 mg/dL H mg/dL (70-100) Calcium 9.0 mg/dL mg/dL (8.5-10.4) Troponin I < 0.012 ng/mL ng/mL (0.000-0.034) Medications Given: Albuterol/Ipratropium (Duoneb) 3 ml IH Q6HRS PRN PRN Reason: Short of Breath/Dyspnea Stop: 02/18/18 23:45 Last Admin: 08/23/17 00:34 Dose: 3 ml Morphine Sulfate (Morphine) 1 - 2 mg IVP Q3HRS PRN PRN Reason: Pain, Severe Unable to Take PO Stop: 09/01/17 23:46 Last Admin: 08/23/17 03:14 Dose: 2 mg Discontinued Medications Acetaminophen (Tylenol) 1,000 mg PO EDNOW ONE Stop: 08/22/17 20:03 Last Admin: 08/22/17 20:10 Dose: 1,000 mg Albuterol (Proventil Neb) 3 ml IH EDNOW ONE Stop: 08/22/17 19:10 Last Admin: 08/22/17 19:30 Dose: 3 ml Albuterol (Proventil Neb) 3 ml IH EDNOW ONE Stop: 08/22/17 19:22 Last Admin: 08/22/17 19:30 Dose: 3 ml Albuterol (Proventil Neb) 12 ml IH EDNOW ONE Stop: 08/22/17 19:24 Last Admin: 08/22/17 19:30 Dose: 12 ml Magnesium Sulfate (Magnesium Sulf 2 Gm (Premix)) 50 mls @ 50 mls/hr IV EDNOW ONE Stop: 08/22/17 20:20 Last Admin: 08/22/17 19:39 Dose: 50 mls Sodium Chloride (Ns) 1,000 mls @ 0 mls/hr IV EDNOW ONE; Wide Open PRN Reason: Protocol Stop: 08/22/17 20:03 Last Admin: 08/22/17 20:08 Dose: 1,000 mls Lorazepam (Ativan Injection) 1 mg IVP EDNOW ONE Stop: 08/22/17 20:03 Last Admin: 08/22/17 20:09 Dose: 1 mg Methylprednisolone Sodium Succinate (Solu-Medrol) 125 mg IVP EDNOW ONE Stop: 08/22/17 19:10 Last Admin: 08/22/17 19:32 Dose: 125 mg Departure - Departure Disposition: [facility] Acute Clinical Impression: Hypoxemia, COPD exacerbation Condition: Fair
[2017-08-22] MEDS ORDERED: MAGNESIUM SULF 2 GM/WATER 50 ML IV ONE (19:21)
[2017-08-22 19:25] LABS: PLATELET COUNT 260 10^3/uL (150-400)
[2017-08-22] MEDS ORDERED: ACETAMINOPHEN 500 MG TAB PO ONE (20:02)
[2017-08-22] MEDS ORDERED: LORazepam 2 MG/ML INJ IVP ONE (20:02)
[2017-08-22] MEDS ORDERED: NS 1,000 ML IV ONE (20:02)
--- NOTE | 2017-08-22 20:08 | CPEKG ---
Heart Rate: 122 RR Interval: 492 P-R Interval: 156 QRSD Interval: 78 QT Interval: 308 QTC Interval: 439 P Canyon: 74 QRS [place]: 113 T Wave [place]: 44 EKG Severity - ABNORMAL ECG - EKG Impression: SINUS TACHYCARDIA EKG Impression: LEFT POSTERIOR FASCICULAR BLOCK Electronically Signed By: Adrian Garcia 22-Aug-2017 20:16:13
[2017-08-22] MEDS ORDERED: IOPAMIDOL (ISOVUE 370) 100 ML BTL IV ONE ×2 (20:10→20:39)
--- NOTE | 2017-08-22 23:31 | PDGENHP ---
History and Physical - Chief Complaint cough, shortness of breath - History of Present Illness Source - patient somnolent but arousable. kourtney historian. EMR reviewed and case discussed with accepting provider. HPI - Pleasant 57 yo F with pmhx significant for COPD, gerd, and hx TBI who presents to the ED today with c/o worsenin cough and shortness of breath. Patient with multiple hospital/ER visits this month. She was admitted 08/08- with COPD exacerbation/parainfluenza infection. she was discharged and returned 08/16-08/18 for COPD exacerbation. She returned on 08/20 with c/o cough, pleuritic chest pain. She was discharged with rx for prednisone but was not able to fill the script. [facility]. She returns with c/o worsening cough and SOB. she denies any fevers/chills/ rhinorrhea. no nausea/vomiting/diarrhea. She does complain of bilateral chest wall pain that is pleuritic in nature. patient denies any chest pain. s/p steroids and nebs in the ED but continues to note SOB. she requires 5 lpm to maintain sats >90%. History Information - Allergies/Home Medication List Allergies/Adverse Reactions: penicillin G Allergy (Verified 08/22/17 19:22) Home Medications: Aspirin [Aspirin 81mg (*)] 81 mg PO DAILY 07/09/17 [Last Taken 08/22/17] Fluticasone/Salmeter 250/50Mcg [Advair 250/50 (*)] 1 puffs IH BID 07/09/17 [ Last Taken 08/22/17] Albuterol [Proventil Inhaler HFA (*)] 1 - 2 puffs IH Q4-6PRN PRN 08/08/17 [Last Taken 08/16/17 16:30] Calcium Carbonate [Oyster Shell Calcium 500 mg (*)] 500 mg PO DAILY 08/08/17 [ Last Taken 08/22/17] Multivitamins [Multivitamin (*)] 1 each PO DAILY 08/08/17 [Last Taken 08/22/17] [place]-3 Fatty Acids [Fish Oil 1000 mg (*)] 1,000 mg PO DAILY 08/08/17 [Last Taken 08/22/17] Omeprazole 20 mg PO DAILY 08/16/17 [Last Taken 08/22/17] I have personally reviewed and updated: family history, medical history, social history, surgical history - Past Medical History COPD (With Advair and rescue inhaler), GERD Additional medical history: Traumatic brain injury - Surgical History Additional surgical history: Breast tissue excision. EMILEE BSO. Knee surgery. Facial nasal reconstruction, craniotomy status post trauma - Family History Additional family history: Sibling with myocardial infarction around age 50, father with CAD and CHF in his 80s, no respiratory issues - Social History Smoking Status: Former smoker (quit 07/2017) Tobacco Use: Cigarettes Alcohol Use: None Drug Use: None Additional social history: Homeless, recently moved from [place] to [place]. COR - Limited. DNI. patient desires cardiac resuscitation. Review of Systems Review of Systems: ROS: 10pt was reviewed & negative except for what was stated in HPI & below Constitutional: Denies: chills, fever EENMT: Reports: other (no rhinorrhea. ). Denies: sore throat Cardiac: Reports: other (pleuritic bilateral lateral chest wall pain. ). Denies : chest pain, palpitations Respiratory: Reports: cough, orthopnea, shortness of breath, wheezing Gastrointestinal: Denies: vomitting, diarrhea, nausea Genitourinary: Reports: no symptoms Muscolosketal: Reports: no symptoms Skin: Reports: no symptoms Neurological: Reports: no symptoms Physical Exam Physical Exam: Selected Entries 08/22/17 19:10 Blood Pressure Automatic Method Heart Rate 100 Respiratory 18 Rate O2 Sat (%) 91 L Temperature (C) 36.9 C Blood Pressure 126/77 H Mean Arterial 93 Pressure (MAP) O2 (L/minute) 2 O2 Delivery Nasal Cannula Mode Temperature Oral Source Temp Pulse Resp BP Pulse Ox 36.5 C 106 H 16 103/57 L 93 08/22/17 22:05 08/22/17 22:05 08/22/17 22:05 08/22/17 22:05 08/22/17 22:05 O2 (L/minute) 5 Constitutional: no apparent distress, not in pain, chronically ill appearing, other (NAD. obese adult female lays in bed asleep. appears older than stated age. mild increased WOB. ) Eyes: PERRL, anicteric sclera, EOMI, No scleral injection Ears, Nose, Mouth, Throat: poor dentition, dry mucous membranes, other (no nasal discharge. ) Cardiovascular: regular rate and rhythym, no murmur, rub, or gallop (slightly distant heart sounds 2/2 body habitus), pulses symmetric bilaterally, No tachycardia, No edema Peripheral Pulses: 1+: dorsalis-pedis (R), dorsalis-pedis (L) Respiratory: no rales or rhonchi, reduced air movement (diffusely reduced air movement. ), other (mild increased WOB.), No expiratory wheeze, No inspiratory crackles Gastrointestinal: normoactive bowel sounds, soft, non-tender abdomen, no palpable masses, other (obese abdomen. ) Genitourinary: no bladder tenderness, No anglin in urethra Skin: warm, normal color, No mottled, No rash Musculoskeletal: full muscle strength, No generalized weakness Neurologic: AAOx3 (somnolent but arousable. ), CN II-XII Intact, other (grossly nonfocal. ), No facial droop Psychiatric: not anxious, not encephalopathic, No anxious, No depressed Lab Data & Imaging Review 08/22/17 19:15 08/22/17 19:15 WBC 13.68 10^3/uL (3.80-9.50) H 08/22/17 19:15 RBC 4.64 10^6/uL (4.18-5.33) 08/22/17 19:15 Hgb 14.4 g/dL (12.6-16.3) 08/22/17 19:15 Hct 42.9 % (38.0-47.0) 08/22/17 19:15 MCV 92.5 fL (81.5-99.8) 08/22/17 19:15 MCH 31.0 pg (27.9-34.1) 08/22/17 19:15 MCHC 33.6 g/dL (32.4-36.7) 08/22/17 19:15 RDW 14.6 % (11.5-15.2) 08/22/17 19:15 Plt Count 260 10^3/uL (150-400) D 08/22/17 19:15 MPV 10.5 fL (8.7-11.7) 08/22/17 19:15 Neut % (Auto) 75.9 % (39.3-74.2) H 08/22/17 19:15 Lymph % (Auto) 13.7 % (15.0-45.0) L 08/22/17 19:15 [place] % (Auto) 9.1 % (4.5-13.0) 08/22/17 19:15 Eos % (Auto) 0.5 % (0.6-7.6) L 08/22/17 19:15 Baso % (Auto) 0.4 % (0.3-1.7) 08/22/17 19:15 Nucleat RBC Rel Count 0.0 % (0.0-0.2) 08/22/17 19:15 Absolute Neuts (auto) 10.39 10^3/uL (1.70-6.50) H 08/22/17 19:15 Absolute Lymphs (auto) 1.88 10^3/uL (1.00-3.00) 08/22/17 19:15 Absolute Monos (auto) 1.24 10^3/uL (0.30-0.80) H 08/22/17 19:15 Absolute Eos (auto) 0.07 10^3/uL (0.03-0.40) 08/22/17 19:15 Absolute Basos (auto) 0.05 10^3/uL (0.02-0.10) 08/22/17 19:15 Absolute Nucleated RBC 0.00 10^3/uL (0-0.01) 08/22/17 19:15 Immature Gran % 0.4 % (0.0-1.1) 08/22/17 19:15 Immature Gran # 0.05 10^3/uL (0.00-0.10) 08/22/17 19:15 D-Dimer 0.76 ug/mLFEU (0.00-0.50) H 08/22/17 19:15 Sodium 142 mEq/L (134-144) 08/22/17 19:15 Potassium 3.9 mEq/L (3.5-5.2) 08/22/17 19:15 Chloride 101 mEq/L (97-110) 08/22/17 19:15 Carbon Dioxide 33 mEq/l (22-31) H D 08/22/17 19:15 Anion Gap 8 mEq/L (8-16) 08/22/17 19:15 BUN 7 mg/dL (7-23) 08/22/17 19:15 Creatinine 0.6 mg/dL (0.6-1.0) 08/22/17 19:15 Estimated GFR > 60 08/22/17 19:15 Glucose 101 mg/dL (70-100) H 08/22/17 19:15 Calcium 9.0 mg/dL (8.5-10.4) 08/22/17 19:15 Troponin I < 0.012 ng/mL (0.000-0.034) 08/22/17 19:15 Imaging Review: Chest, Two Views at 1848 hours History: dyspnea Comparison: August 20, 2017 Findings: Cardiac silhouette is within normal range. Mild bilateral peribronchial thickening. No definite pneumonia. No congestive heart failure, pleural effusion, or pneumothorax. Impression: 1. Mild bronchitis/airways disease. 2. No definite focal pneumonia or pleural effusion. CT Chest Pulmonary Angiogram, With Contrast Enhancement and Multiplanar Reconstructions, at 2034 hours History: Dyspnea, elevated D-dimer. Technique: 1.25-mm axial multidetector helical CT angiogram imaging was performed through the chest while 90 mL Isovue-370 were injected intravenously, without complication. The images were then transferred to an independent workstation where multiplanar and three- dimensional reconstructions were performed by the interpreting physician and reviewed at multiple windows. Dose reduction techniques were utilized. Comparison: CT August 07, 2017. CT Pulmonary Angiogram Findings: The study is markedly limited due to patient coughing and moving during the exam. No central saddle embolus although the mid to distal vessels cannot be well evaluated, and, therefore, pulmonary thromboemboli cannot be excluded. Mild atherosclerotic aorta, without aneurysm or dissection. The heart is normal in size. Left lower lobe 5 -mm pulmonary nodule image #115 of series #[address] Chest Findings: No pericardial effusion, pleural effusion, or pneumothorax. Limited, without definite evidence of pneumonia. Linear scarring in the right middle lobe and lingula. No significant adenopathy. Impression: 1. Nondiagnostic for pulmonary emboli due to motion artifact and contrast timing. 2. No pneumonia, pleural effusion, or pneumothorax. Chest X-Ray results: no infiltrate Visualized and Interpreted imaging results: Yes Visualized and Interpreted EKG results: Yes EKG additional interpertation: sinus tachy 122. QTc 439. LPFB. no acute ST changes. Assessment & Plan Assessment: 57 yo F with hx COPD, gerd and recent hospitalizations this month for COPD/ parainfluenza infection with c/o worsening cough and SOB. #COPD exacerbation (Acute) - steroids/neb received in the ED. patient continues to have significantly reduced air movement on exam and requiring 5lpm oxygen to maintain sats >90%. #Hypoxemia (Acute) - requiring 5 lpm. will continue tx as above. titrate o2 down to maintain sats > 90% #pleuritic chest wall pain - supportive care. heating pads. tx copd as above. anti-tussives prn. #leukocytosis - likely reactive in setting of hypoxia/COPD exacerbation. patient is afebrile and denies any additional sx. no evidence of PNA on CXR/ CTA. #hx parainfluenza - supportive care. has been several weeks since diagnosis. pt without c/o fevers/chills. #hx tobacco abuse - patient quit in the past week. #hx TBI. FEN - diet as tolerated. electrolyte replacement prn. IVF. PPX - SCDs. lovenox COR - DNI. pt desires cardiac resuscitation Dispo - Admit to inpatient status. patient with continued high oxygen needs and severely restricted air movement. anticipate > 2 midnight stay.
[2017-08-22] MEDS ORDERED: IPRATROPIUM/ALBUTEROL 3 ML DEYVIAL IH PRN (23:46)
[2017-08-22] MEDS ORDERED: ALBUTEROL 3 ML DEYVIAL IH PRN (23:46)
[2017-08-23 04:45] LABS: PLATELET COUNT 230 10^3/uL (150-400)
[2017-08-23] MEDS: BUDESONIDE 0.5 MG/2 ML AMPUL.NEB IH SCH ×2 (08:00→21:08)
[2017-08-23] MEDS ORDERED: BENZONATATE 100 MG CAP PO PRN (08:25)
[2017-08-23] MEDS ORDERED: NON-FORMULARY NEW DRUG (Omeprazole [Omeprazole] 20 MG) PO SCH (09:00)
[2017-08-23] MEDS ORDERED: methylPREDNISolone SOD SUCC 125 MG/2 ML VIAL IVP SCH (09:00)
--- NOTE | 2017-08-23 09:36 | PDMN ---
Medical Necessity Medical necessity: Pt meets IP criteria per MD; est los >2 mn for eval/tx of acute COPD exacerbation w/worsening cough & SOB, hypoxemia, pleuritic chest wall pain & leukocytosis; pt w/high oxygen needs & severely restricted air movement; admit for further monitoring/supportive care, IVFs, electrolyte replacement; hx recent parainfluenza/COPD exacerbation, TBI & homelessness; per H&P & order 08/23/17
[2017-08-23] MEDS: ONDANSETRON 4 MG/2 ML VIAL IVP PRN ×2 (09:48→18:57)
[2017-08-23] MEDS: ENOXAPARIN 40 MG/0.4 ML SYR SC SCH (09:51)
[2017-08-23] MEDS: OMEGA-3 FATTY ACIDS 1,000 MG CAP PO SCH (09:54)
[2017-08-23] MEDS: PANTOPRAZOLE SODIUM 40 MG TAB PO SCH (09:54)
[2017-08-23] MEDS: MULTIVITAMINS 1 EACH TAB PO SCH (09:54)
[2017-08-23] MEDS: CALCIUM CARBONATE 500 MG TAB PO SCH (09:54)
[2017-08-23] MEDS: ASPIRIN 81 MG CHEWABLE TAB PO SCH (09:54)
--- NOTE | 2017-08-23 13:22 | HOSPPROG ---
Hospitalist Progress Note Assessment/Plan: New Patient Encounter 57 YO F with COPD with recent exacerbation, did not fill her prescribed prednisone, admitted 07/23 for COPD-E and acute resp failure Starting to feel better CXR: unremarkable CTA Chest: poor study, no definitive clots, but could not visualize distal vessels well #COPD-E #Acute Resp Failure due to COPD-E #Pleuritic CP, resolved #Leukocytosis, no e/o pneumonia on CXR, afebrile, will check Influenza #Weakness and Deconditioning: PT/OT Plan: increase solumedrol and begin taper supplemental O2 as needed check influenza today PT/OT Repeat CBC, although with steroids leukocytosis may worsen DVT proph: lovenox DNI, ok for cardiac resuc Subjective: feeling better. Afebrile. no furher CP. no leg swelling. Did not fill her prednisone. Unclear if she wears O2 at home as she is homeless Objective: Vital Signs Temp Pulse Resp BP Pulse Ox 36.6 C 95 20 118/75 98 08/23/17 11:27 08/23/17 11:27 08/23/17 11:27 08/23/17 11:27 08/23/17 11:27 Laboratory Results 08/23/17 03:56 08/23/17 03:56 08/22/17 08/23/17 08/24/17 05:59 05:59 05:59 Intake Total 0 Balance 185 - Physical Exam Constitutional: no apparent distress Eyes: PERRL, EOMI Ears, Nose, Mouth, Throat: moist mucous membranes, hearing normal Cardiovascular: regular rate and rhythym, No edema Respiratory: no respiratory distress, reduced air movement, expiratory wheeze Gastrointestinal: normoactive bowel sounds, soft, non-tender abdomen Genitourinary: no bladder fullness Skin: warm Musculoskeletal: generalized weakness Neurologic: AAOx3 Psychiatric: interacting appropriately, not anxious, not encephalopathic, thought process linear Lymph, Heme, Immunologic: No petechiae ICD10 Worksheet Patient Problems: Problems Problem Status Onset COPD exacerbation Acute Hypoxemia Acute Chest pain Acute
[2017-08-23] MEDS: ACETAMINOPHEN 325 MG TAB PO PRN ×2 (16:15→20:30)
--- NOTE | 2017-08-23 16:34 | ASMTCMCOM ---
CM Note CM Note Notes: This is pts 3rd admission following 6 visits to ED since June. At previous visits, pt has refused correction bed stating that she wants to stay with son and that they have been staying in the [facility] on a nightly basis with son. They keep their belongings in their car. Met with pt who states she thinks her visits to the ED are from staying in the correction program and her son has now found a motel in [place] where they will be staying. At last ED visit 08/20, pt did not fill her prescription per H&P. Pt stated she had a hard time at the pharmacy. Pt can go to [facility] to get a prescription filled but they will be closed until Aug 27 Recommend that pts prescriptions are filled through the [facility] at [place]. Let know. C/M to follow. Date Signed: 08/23/2017 04:34 PM Electronically Signed By:Ella Mcnulty LCSW
[2017-08-23] MEDS: methylPREDNISolone SOD SUCC 125 MG/2 ML VIAL IVP SCH (22:04)
[2017-08-24] MEDS ORDERED: predniSONE 10 MG TAB PO SCH
[2017-08-24] MEDS ORDERED: ALBUTEROL 60 PUFFS/8 GM MDI IH SCH
[2017-08-24 04:01] VITALS: RESP 19
[2017-08-24] MEDS: MULTIVITAMINS 1 EACH TAB PO SCH (09:45)
[2017-08-24] MEDS: OMEGA-3 FATTY ACIDS 1,000 MG CAP PO SCH (09:45)
[2017-08-24] MEDS: CALCIUM CARBONATE 500 MG TAB PO SCH (09:45)
[2017-08-24] MEDS: ASPIRIN 81 MG CHEWABLE TAB PO SCH (09:45)
[2017-08-24] MEDS: PANTOPRAZOLE SODIUM 40 MG TAB PO SCH (09:45)
[2017-08-24] MEDS: BUDESONIDE 0.5 MG/2 ML AMPUL.NEB IH SCH (10:10)
[2017-08-24] MEDS: ENOXAPARIN 40 MG/0.4 ML SYR SC SCH (10:46)
[2017-08-24] MEDS: methylPREDNISolone SOD SUCC 125 MG/2 ML VIAL IVP SCH (10:46)
[2017-08-24 12:10] VITALS: BP 90/62; PULSE 81; TEMP 98.3; O2SAT 95
--- NOTE | 2017-08-24 13:46 | ASDISCHSUM ---
Discharge Information Plan Status:Homeless/Care Home Medically Cleared to Leave:08/23/2017 Discharge Date:08/24/2017 01:24 PM CM D/C Disposition:Home, Routine, Self-Care ADT D/C Disposition:Home, Routine, Self-Care Projected Discharge Date:08/24/2017 01:24 PM Transportation at D/C:Self Discharge Delay Reason: Follow-Up Date:08/24/2017 01:24 PM Discharge Slot: Final Diagnosis: Placement Information Patient Contact Information Contact Name:FERNANDA Relationship:Kleber Address: Work Phone: City: [facility] Phone: State/[place] Code: Email: Financial Information Financial Class: Primary Plan Desc:[facility] Primary Plan Number:[id number] Secondary Plan Desc: Secondary Plan Number: Assessment Information [facility] Progress Note CM Note CM Note Notes: This is pts 3rd admission following 6 visits to ED since June. At previous visits, pt has refused alf bed stating that she wants to stay with son and that they have been staying in the [facility] on a nightly basis with son. They keep their belongings in their car. Met with pt who states she thinks her visits to the ED are from staying in the alf program and her son has now found a motel in [place] where they will be staying. At last ED visit 08/20, pt did not fill her prescription per H&P. Pt stated she had a hard time at the pharmacy. Pt can go to [facility] to get a prescription filled but they will be closed until Aug 2 Recommend that pts prescriptions are filled through the [facility] program at [place]. Let know. C/M to follow. Date Signed: 08/23/2017 04:34 PM Electronically Signed By:Ella Mcnulty LCSW Case Management Discharge Plan Note Case Management Discharge Discharge Order Complete? Answers: Yes Patient to Obtain Answers: via [facility] Medications Transportation Arranged Answers: Other Notes: self Discharge Comments Notes: 08/24/2017 Case Management Note Provided 7 days of meds through [facility] program. Pt to follow up with [facility] or [facility]'s clinic next week for more meds. Pt plans to live in [facility] in [place] for the short term. Date Signed: 08/24/2017 01:46 PM Electronically Signed By:Radha Thompson RN Intervention Information
--- NOTE | 2017-08-24 17:58 | GDS ---
[f rep st] DISCHARGE SUMMARY DISCHARGE DIAGNOSES: Include: 1. Acute chronic obstructive pulmonary disease exacerbation. 2. Acute hypoxic respiratory failure secondary to chronic obstructive pulmonary disease. 3. Chronic medication noncompliance. 4. Leukocytosis secondary to steroids. 5. History of recent parainfluenza infection. 6. Tobacco abuse. 7. History of traumatic brain injury. HISTORY OF PRESENT ILLNESS: A 57-year-old female with a recent hospitalization for COPD and parainfl uenza, who re-presents with complaints of shortness of breath. For details of patient's initial pres entation, please see the history and physical dated 08/22/2017. CONSULTATIVE SERVICES: None. PROCEDURES: None. HOSPITAL COURSE BY ISSUE: Acute chronic obstructive pulmonary disease exacerbation thought secondary to medication noncompliance in the outpatient setting. Patient was re-initiated on supplemental oxy gen, systemic steroids, and inhaled bronchodilators. Forty-eight hours after presentation, patient's symptoms are markedly improved. We are providing her (through the [facility] program) prednisone and albut luis angel. She will continue on her other home medications and follow at [facility]. MEDICATIONS AT DISPOSITION: Please reference med rec printed on 08/24/2017. FOLLOWUP APPOINTMENTS: Include with [facility] next week for her first post discharge followu p. TIME SPENT: I spent greater than 30 minutes in the planning and coordination of this discharge. /[id number]/MODL
== END 2017-08-24 13:24 | disposition home or self-care (01) | DRG 190 ==
LOC: F1N 21:59
PROVIDERS: ADMIT Internal Medicine; ATTEND Hospitalist
DX: J44.1 Chronic obstructive pulmonary disease with (acute) exacerbation (principal); J96.01 Acute respiratory failure with hypoxia; Z91.14 Patient's other noncompliance with medication regimen; D72.829 Elevated white blood cell count, unspecified; T38.0X5A Adverse effect of glucocorticoids and synthetic analogues, initial encounter; F17.210 Nicotine dependence, cigarettes, uncomplicated; R91.1 Solitary pulmonary nodule; Z87.820 Personal history of traumatic brain injury; Z59.0 Homelessness; Z88.0 Allergy status to penicillin; Z82.49 Family history of ischemic heart disease and other diseases of the circulatory system
CPT/HCPCS: 96365; 97161-GP; J1650; J2060; J2405; J2930; J7512; Q9967